=== PATIENT | male | born 1935 | race Caucasian/White ===

== ENCOUNTER → 2017-11-11 | Outpatient (CLI) | payer OTHER ==
[~2017-11-11] MED LIST: ACET325 PO; AMLO10 PO; ASPI325; ATOR40TA PO; Aspir 8181 MG; CYCL0.05OP; CYCL0.05OP BOTHEYES; DUTA.5 PO; FISH1000 PO; FURO20 PO; Fish Oil Conce1 EACH PO; Hydrocodone-Ap1 EA23 PO; IBUP600 PO; Isosorbide Mono60 MG PO; LEVFLO500 PO; LUTEIN20 MG PO; METO25ER PO; NITR.4SL SL; POTCHL10ER PO; Prilosec20 MG PO; RANO500T PO; SENN187 PO; SIMV40 PO; Synthroid112 MCG PO; TAMS.4ER PO; TICA90TA PO; TRIM100 PO; Toprol Xl25 MG PO; Vitamin D400 UNI1 PO; ZEAXANTHIN100 GM PO
== END | disposition home or self-care (01) ==
LOC: LAB EV 08:41 → LAB SHORT 08:41
DX: N30.01 Acute cystitis with hematuria (principal)
CPT/HCPCS: 87077; 87086; 87186

== ENCOUNTER 2017-12-28 11:07 | Emergency (ER) | payer OTHER, SELFPAY ==
[~2017-12-28] VITALS: Ht 180.3 cm; Wt 95.2 kg
[2017-12-28 11:54] LABS: BASOPHILS ABSOLUTE AUTO 0.04 K/mm3 (0.00-0.23); BASOPHILS PERCENT AUTO 1 % (0-2); EOSINOPHILS ABSOLUTE AUTO 0.19 K/mm3 (0.00-0.68); EOSINOPHILS PERCENT AUTO 3 % (0-6); Hematocrit 39.1 % (37.0-53.0); Hemoglobin 12.1 g/dL (13.5-17.5); IMMATURE GRAN ABSOLUTE AUTO 0.02 K/mm3 (0.00-0.10); IMMATURE GRAN PERCENT AUTO 0 % (0-1); LYMPHOCYTES ABSOLUTE AUTO 0.67 K/mm3 (0.84-5.20); LYMPHOCYTES PERCENT AUTO 11 % (21-46); MONOCYTES ABSOLUTE AUTO 0.48 K/mm3 (0.16-1.47); MONOCYTES PERCENT AUTO 8 % (4-13); Mean Corpuscular HGB 27.8 pg (26.0-34.0); Mean Corpuscular HGB Conc 30.9 g/dL (31.5-36.5); Mean Corpuscular Volume 90 fL (80-100); Mean Platelet Volume 10.1 fL (9.1-12.4); NEUTROPHILS ABSOLUTE AUTO 4.73 K/mm3 (1.96-9.15); NEUTROPHILS PERCENT AUTO 77 % (41-73); Platelet Count 158 K/mm3 (150-400); RDW Coefficient Variation 16.3 % (11.7-14.2); Red Blood Cell Count 4.35 M/mm3 (4.30-5.90); White Blood Cell Count 6.13 K/mm3 (4.00-11.30)
[2017-12-28 12:08] LABS: Alanine Aminotransfer (ALT/SGP 16 U/L (12-78); Albumin, Blood 3.2 g/dL (3.4-5.0); Albumin/Globulin Ratio 0.9 (0.8-1.8); Alk Phos 100 U/L (50-136); Anion Gap 7 mmol/L (6-16); Aspartate Aminotrans (AST/SGOT 13 U/L (12-37); Bilirubin, Total 0.6 mg/dL (0.1-1.0); Blood Urea Nitrogen 13 mg/dL (8-24); Bun/Creatinine Ratio 13.7 (12.0-20.0); CO2, Blood 26 mmol/L (21-32); Calcium, Blood 8.5 mg/dL (8.5-10.1); Chloride, Blood 110 mmol/L (98-108); Creatinine, Blood 0.95 mg/dL (0.60-1.20); Globulin, Blood 3.4 g/dL (2.2-4.0); Glomerular Filtration Rate >60 (60-); Glucose, Blood 76 mg/dL (70-99); Potassium, Blood 4.2 mmol/L (3.5-5.5); Sodium, Blood 143 mmol/L (136-145); Total Protein, Blood 6.6 g/dL (6.4-8.2)
[2017-12-28 12:23] LABS: Magnesium, Blood 2.1 mg/dL (1.6-2.4)
[2017-12-28 13:19] LABS: Troponin I <0.015 ng/mL (0.000-0.040)
[2017-12-28 13:33] LABS: Source, Urine Catheter
[2017-12-28 13:37] LABS: Appearance, Urine Clear (Clear); Bilirubin, Urine Neg (Neg); Blood, Urine Neg (Neg); Color, Urine Yellow (P-Yellow); Glucose Qualitative, Urine Neg (Neg); Ketones, Urine Neg (Neg); Leukocyte Esterase, Urine 1+ (Neg); Nitrite, Urine Neg (Neg); Protein, Urine Neg (Neg); Urobilinogen, Urine 2+ (Normal)
[2017-12-28 14:02] LABS: Bacteria Few /hpf; Red Blood Cells, Urine 0-2 /hpf (0-2); Squamous Epithelial Cells Few /hpf (Few)
== END 2017-12-28 13:45 | disposition home or self-care (01) ==
LOC: ER 11:07
PROVIDERS: Emergency Medicine
DX: R55 Syncope and collapse (principal); I25.2 Old myocardial infarction; I25.10 Atherosclerotic heart disease of native coronary artery without angina pectoris; E78.00 Pure hypercholesterolemia, unspecified; Z88.0 Allergy status to penicillin; Z88.8 Allergy status to other drugs, medicaments and biological substances; Z91.048 Other nonmedicinal substance allergy status; Z79.899 Other long term (current) drug therapy; Z79.82 Long term (current) use of aspirin
CPT/HCPCS: 71046; 80053; 81001; 82947; 83735; 84484; 85025; 87086; 93005; 93010; 99284

== ENCOUNTER → 2018-07-27 | Outpatient (CLI) | payer OTHER ==
[2018-07-27 13:19] LABS: BASOPHILS ABSOLUTE AUTO 0.04 K/mm3 (0.00-0.23); BASOPHILS PERCENT AUTO 1 % (0-2); EOSINOPHILS ABSOLUTE AUTO 0.05 K/mm3 (0.00-0.68); EOSINOPHILS PERCENT AUTO 1 % (0-6); Hematocrit 36.9 % (37.0-53.0); Hemoglobin 11.7 g/dL (13.5-17.5); IMMATURE GRAN ABSOLUTE AUTO 0.03 K/mm3 (0.00-0.10); IMMATURE GRAN PERCENT AUTO 0 % (0-1); LYMPHOCYTES ABSOLUTE AUTO 0.77 K/mm3 (0.84-5.20); LYMPHOCYTES PERCENT AUTO 9 % (21-46); MONOCYTES ABSOLUTE AUTO 0.72 K/mm3 (0.16-1.47); MONOCYTES PERCENT AUTO 9 % (4-13); Mean Corpuscular HGB 28.5 pg (26.0-34.0); Mean Corpuscular HGB Conc 31.7 g/dL (31.5-36.5); Mean Corpuscular Volume 90 fL (80-100); Mean Platelet Volume 10.2 fL (9.1-12.4); NEUTROPHILS ABSOLUTE AUTO 6.56 K/mm3 (1.96-9.15); NEUTROPHILS PERCENT AUTO 80 % (41-73); Platelet Count 153 K/mm3 (150-400); RDW Standard Deviation 52.8 fL (35.1-46.3); Red Blood Cell Count 4.11 M/mm3 (4.30-5.90); White Blood Cell Count 8.17 K/mm3 (4.00-11.30)
[2018-07-27 13:26] LABS: Anion Gap 8 mmol/L (6-16); Blood Urea Nitrogen 10 mg/dL (8-24); Bun/Creatinine Ratio 10.8 (12.0-20.0); CO2, Blood 25 mmol/L (21-32); Calcium, Blood 8.6 mg/dL (8.5-10.1); Chloride, Blood 101 mmol/L (98-108); Creatinine, Blood 0.93 mg/dL (0.60-1.20); Glomerular Filtration Rate >60 (60-); Glucose, Blood 115 mg/dL (70-99); Potassium, Blood 3.7 mmol/L (3.5-5.5); Sodium, Blood 134 mmol/L (136-145)
== END | disposition home or self-care (01) ==
LOC: LAB SHORT 13:16 → LAB EV 13:16
PROVIDERS: General Practice
DX: R33.9 Retention of urine, unspecified (principal)
CPT/HCPCS: 80048; 85025; 87077; 87086; 87186

== ENCOUNTER 2019-03-02 10:38 | Observation (INO) | payer OTHER, SELFPAY ==
[~2019-03-02] VITALS: Ht 180.3 cm; Wt 93.5 kg
[2019-03-02 11:06] LABS: BASOPHILS ABSOLUTE AUTO 0.04 K/mm3 (0.00-0.23); BASOPHILS PERCENT AUTO 1 % (0-2); EOSINOPHILS ABSOLUTE AUTO 0.16 K/mm3 (0.00-0.68); EOSINOPHILS PERCENT AUTO 4 % (0-6); Hematocrit 37.5 % (37.0-53.0); Hemoglobin 11.4 g/dL (13.5-17.5); IMMATURE GRAN ABSOLUTE AUTO 0.01 K/mm3 (0.00-0.10); IMMATURE GRAN PERCENT AUTO 0 % (0-1); LYMPHOCYTES ABSOLUTE AUTO 1.04 K/mm3 (0.84-5.20); LYMPHOCYTES PERCENT AUTO 24 % (21-46); MONOCYTES ABSOLUTE AUTO 0.36 K/mm3 (0.16-1.47); MONOCYTES PERCENT AUTO 8 % (4-13); Mean Corpuscular HGB 27.4 pg (26.0-34.0); Mean Corpuscular HGB Conc 30.4 g/dL (31.5-36.5); Mean Corpuscular Volume 90 fL (80-100); Mean Platelet Volume 9.9 fL (9.1-12.4); NEUTROPHILS ABSOLUTE AUTO 2.75 K/mm3 (1.96-9.15); NEUTROPHILS PERCENT AUTO 63 % (41-73); Platelet Count 162 K/mm3 (150-400); RDW Coefficient Variation 16.1 % (11.7-14.2); RDW Standard Deviation 52.9 fL (35.1-46.3); Red Blood Cell Count 4.16 M/mm3 (4.30-5.90); White Blood Cell Count 4.36 K/mm3 (4.00-11.30)
[2019-03-02 11:18] LABS: Alanine Aminotransfer (ALT/SGP 14 U/L (12-78); Albumin, Blood 3.3 g/dL (3.4-5.0); Alk Phos 98 U/L (50-136); Anion Gap 5 mmol/L (6-16); Aspartate Aminotrans (AST/SGOT 12 U/L (12-37); Bilirubin, Total 1.1 mg/dL (0.1-1.0); Blood Urea Nitrogen 15 mg/dL (8-24); Bun/Creatinine Ratio 16.2 (12.0-20.0); CO2, Blood 25 mmol/L (21-32); Calcium, Blood 8.4 mg/dL (8.5-10.1); Chloride, Blood 109 mmol/L (98-108); Creatinine, Blood 0.93 mg/dL (0.60-1.20); Globulin, Blood 3.3 g/dL (2.2-4.0); Glomerular Filtration Rate >60 (60-); Glucose, Blood 116 mg/dL (70-99); Sodium, Blood 139 mmol/L (136-145); Total Protein, Blood 6.6 g/dL (6.4-8.2)
[2019-03-02] MEDS ORDERED: LEVSOD125 PO (15:57)
[2019-03-02] MEDS ORDERED: GABA300 PO (15:58)
[2019-03-02] MEDS ORDERED: ATORVASTATIN CA40 MG PO (15:59)
[2019-03-02] MEDS ORDERED: OMEP20ER PO (15:59)
[2019-03-02] MEDS ORDERED: CLOP75 PO (16:00)
[2019-03-02] MEDS ORDERED: METOPROLOL SUCC25 MG PO (16:00)
[2019-03-02] MEDS ORDERED: RESTASIS MULTI5.5 ML BOTHEYES (16:01)
[2019-03-02] MEDS ORDERED: TRIM100 PO (16:02)
--- NOTE | 2019-03-02 19:26 | NUR ---
1846 PT ADMITTED TO MEDICAL FLOOR VIA [facility], SLIDE TRANSFERED TO BED WITH 3 STAFF. AND GRANDDAUGHTER AT BEDSIDE.
[2019-03-02] MEDS ORDERED: RANO500T PO (19:49)
[2019-03-03 01:05] LABS: BASOPHILS ABSOLUTE AUTO 0.04 K/mm3 (0.00-0.23); BASOPHILS PERCENT AUTO 1 % (0-2); EOSINOPHILS ABSOLUTE AUTO 0.19 K/mm3 (0.00-0.68); EOSINOPHILS PERCENT AUTO 4 % (0-6); Hemoglobin 11.4 g/dL (13.5-17.5); IMMATURE GRAN ABSOLUTE AUTO 0.01 K/mm3 (0.00-0.10); IMMATURE GRAN PERCENT AUTO 0 % (0-1); LYMPHOCYTES ABSOLUTE AUTO 1.09 K/mm3 (0.84-5.20); LYMPHOCYTES PERCENT AUTO 22 % (21-46); MONOCYTES ABSOLUTE AUTO 0.46 K/mm3 (0.16-1.47); MONOCYTES PERCENT AUTO 9 % (4-13); Mean Corpuscular HGB 27.5 pg (26.0-34.0); Mean Corpuscular HGB Conc 30.8 g/dL (31.5-36.5); Mean Corpuscular Volume 89 fL (80-100); Mean Platelet Volume 9.9 fL (9.1-12.4); NEUTROPHILS ABSOLUTE AUTO 3.13 K/mm3 (1.96-9.15); NEUTROPHILS PERCENT AUTO 64 % (41-73); Platelet Count 156 K/mm3 (150-400); RDW Coefficient Variation 15.9 % (11.7-14.2); RDW Standard Deviation 52.9 fL (35.1-46.3); Red Blood Cell Count 4.15 M/mm3 (4.30-5.90); White Blood Cell Count 4.92 K/mm3 (4.00-11.30)
[2019-03-03 01:24] LABS: Alanine Aminotransfer (ALT/SGP 14 U/L (12-78); Albumin, Blood 3.4 g/dL (3.4-5.0); Alk Phos 97 U/L (50-136); Anion Gap 5 mmol/L (6-16); Aspartate Aminotrans (AST/SGOT 12 U/L (12-37); Bilirubin, Total 0.8 mg/dL (0.1-1.0); Blood Urea Nitrogen 15 mg/dL (8-24); Bun/Creatinine Ratio 14.6 (12.0-20.0); CO2, Blood 27 mmol/L (21-32); Calcium, Blood 8.6 mg/dL (8.5-10.1); Chloride, Blood 107 mmol/L (98-108); Creatinine, Blood 1.03 mg/dL (0.60-1.20); Globulin, Blood 3.3 g/dL (2.2-4.0); Glomerular Filtration Rate >60 (60-); Glucose, Blood 105 mg/dL (70-99); Potassium, Blood 4.1 mmol/L (3.5-5.5); Sodium, Blood 139 mmol/L (136-145); Total Protein, Blood 6.7 g/dL (6.4-8.2)
--- NOTE | 2019-03-03 04:14 | NUR ---
SHIFT SUMMARY- PT. ARRIVED FROM ED @1900 VIA STRETCHER. ASSISTED WITH TRANSFER OVER TO BED. A&O, DX'S OF SYNCOPE AND FALL. PT. WITH HX OF SEVERAL FALLS PER . PT. STATES USES CANE AT HOME. PT/OT CONSULTED. PERFORMS SELF CATHS FOR URINARY RETENTION. USING HOME BIPAP MACHINE AT BEDTIME FOR SLEEP APNEA WITH CONTINOUS PULSE OXIMETRY. VSS. DENIES ANY C/O PAIN OR DISCOMFORT AT THIS TIME. CALL LIGHT WITHIN REACH AND SIDE RAILS UP X2. WILL CONT TO MONITOR.
--- NOTE | 2019-03-03 10:24 | NUR ---
SCANNED PT LOOP RECORDER PER DR GILLILAND ORDER, NO EVENTS SEEN FOR YESTERDAYS SYNCOPAL EPISODE, PT ON BETA ZAHRA AT HOME, BUT HELD IN HOSPITAL R/T LOW HR IN 50'S. NOTIFIED PCU TO PRINT RHYTHM STRIPS FOR HR < 50 BPM.
--- NOTE | 2019-03-03 10:58 | NUR ---
PT PARTICIPATED WITH PT/OT AND TOLERATED WELL. [facility]ART [facility]ENTER INTERROGATED LOOP RECORDER, FOUND THAT LOW SETTING TO 30BPM, PT HAS BEEN BRADYCARDIC, ER REPORTED YESTERDAY THAT WHILE ON MONITOR HR LOW 47 BPM. CLOUD CONSULTANT REPORTED THAT PT'S HR WAS 50 BPM DURING THE NIGHT. METOPROLOL HELD THIS AM, HR 55 BPM.
[2019-03-03] MEDS ORDERED: GABA100 PO (14:30)
[2019-03-03] MEDS ORDERED: ROXICODONE5 MG PO (14:31)
--- NOTE | 2019-03-03 17:29 | NUR ---
1600 PT DISCHARGED HOME VIA PERSONAL VEHICLE ACCOMPANIED AND DRIVEN BY . TRANSPORTED TO FACILITY ENTRANCE VIA W/C BY INDOOR LANDSCAPE ARCHITECT. IV REMOVED. D/C INSTRUCTIONS REVIEWED WITH PT AND COPY PROVIDED. PT DENIED FEELING DIZZY WITH POSITION CHANGES AND AMBULATION. PT STEADY ON FEET WITH FWW. PT PARTICIPATED WITH PT/OT AND TOLERATED WELL WITH WALKER TRAINING.
== END 2019-03-03 16:00 | disposition home health service (06) ==
LOC: ER 10:38 → MEDS 10:39
PROVIDERS: Internal Medicine; ADMIT Family Medicine
DX: R29.6 Repeated falls (principal); R27.0 Ataxia, unspecified; S20.229A Contusion of unspecified back wall of thorax, initial encounter; S40.011A Contusion of right shoulder, initial encounter; R62.7 Adult failure to thrive; R55 Syncope and collapse; M19.90 Unspecified osteoarthritis, unspecified site; G60.9 Hereditary and idiopathic neuropathy, unspecified; M51.36 Other intervertebral disc degeneration, lumbar region; I25.10 Atherosclerotic heart disease of native coronary artery without angina pectoris; E78.5 Hyperlipidemia, unspecified; M81.0 Age-related osteoporosis without current pathological fracture; G47.33 Obstructive sleep apnea (adult) (pediatric); E03.9 Hypothyroidism, unspecified; R33.8 Other retention of urine; Z79.82 Long term (current) use of aspirin; Z79.02 Long term (current) use of antithrombotics/antiplatelets; Z79.899 Other long term (current) drug therapy; Z88.0 Allergy status to penicillin; Z95.5 Presence of coronary angioplasty implant and graft; Z87.891 Personal history of nicotine dependence
CPT/HCPCS: 36415; 70450; 70496; 70498; 72080; 73030; 80053; 84484; 85025; 93005; 93010; 93291; 94762; 96372; 97116; 97161; 97165; 97530; 97535; 99285-25; G0378; J1650; Q9967

== ENCOUNTER → 2019-06-30 | Outpatient (CLI) | payer OTHER ==
[~2019-06-30] MED LIST changes: +ATORVASTATIN CA40 MG PO; +CLOP75 PO; +GABA100 PO; +GABA300 PO; +LEVSOD125 PO; +METOPROLOL SUCC25 MG PO; +OMEP20ER PO; +RESTASIS MULTI5.5 ML BOTHEYES; +ROXICODONE5 MG PO
== END | disposition home or self-care (01) ==
LOC: LAB SHORT 11:10 → LAB EV 11:10
DX: N39.0 Urinary tract infection, site not specified (principal)
CPT/HCPCS: 87077; 87086; 87186

== ENCOUNTER 2019-09-16 17:22 | Emergency (ER) | payer OTHER ==
[~2019-09-16] VITALS: Ht 177.8 cm; Wt 92.5 kg
[2019-09-16 18:08] LABS: BASOPHILS ABSOLUTE AUTO 0.03 K/mm3 (0.00-0.23); BASOPHILS PERCENT AUTO 0 % (0-2); EOSINOPHILS ABSOLUTE AUTO 0.05 K/mm3 (0.00-0.68); EOSINOPHILS PERCENT AUTO 1 % (0-6); Hematocrit 41.5 % (37.0-53.0); Hemoglobin 12.6 g/dL (13.5-17.5); IMMATURE GRAN ABSOLUTE AUTO 0.02 K/mm3 (0.00-0.10); IMMATURE GRAN PERCENT AUTO 0 % (0-1); LYMPHOCYTES ABSOLUTE AUTO 0.55 K/mm3 (0.84-5.20); LYMPHOCYTES PERCENT AUTO 5 % (21-46); MONOCYTES ABSOLUTE AUTO 0.52 K/mm3 (0.16-1.47); MONOCYTES PERCENT AUTO 5 % (4-13); Mean Corpuscular HGB 27.3 pg (26.0-34.0); Mean Corpuscular HGB Conc 30.4 g/dL (31.5-36.5); Mean Corpuscular Volume 90 fL (80-100); Mean Platelet Volume 10.2 fL (9.1-12.4); NEUTROPHILS ABSOLUTE AUTO 9.26 K/mm3 (1.96-9.15); NEUTROPHILS PERCENT AUTO 89 % (41-73); Platelet Count 179 K/mm3 (150-400); RDW Coefficient Variation 16.7 % (11.7-14.2); RDW Standard Deviation 55.3 fL (35.1-46.3); Red Blood Cell Count 4.62 M/mm3 (4.30-5.90); White Blood Cell Count 10.43 K/mm3 (4.00-11.30)
[2019-09-16 18:26] LABS: Anion Gap 3 mmol/L (6-16); Blood Urea Nitrogen 12 mg/dL (8-24); CO2, Blood 28 mmol/L (21-32); Chloride, Blood 104 mmol/L (98-108); Creatinine, Blood 0.86 mg/dL (0.60-1.20); Glomerular Filtration Rate >60 (60-); Glucose, Blood 118 mg/dL (70-99); Potassium, Blood 4.5 mmol/L (3.5-5.5); Sodium, Blood 135 mmol/L (136-145)
== END 2019-09-16 20:06 | disposition home or self-care (01) ==
LOC: ER 17:22
PROVIDERS: Physician Assistant
DX: S13.9XXA Sprain of joints and ligaments of unspecified parts of neck, initial encounter (principal); S20.219A Contusion of unspecified front wall of thorax, initial encounter; W18.30XA Fall on same level, unspecified, initial encounter; Z88.0 Allergy status to penicillin; Z88.1 Allergy status to other antibiotic agents; Z91.048 Other nonmedicinal substance allergy status; Z79.899 Other long term (current) drug therapy; I25.2 Old myocardial infarction; I25.10 Atherosclerotic heart disease of native coronary artery without angina pectoris; Z87.891 Personal history of nicotine dependence
CPT/HCPCS: 36415; 71250; 72125; 80048; 85025; 99284-25

== ENCOUNTER → 2020-05-26 | Outpatient (CLI) | payer OTHER ==
[~2020-05-26] MED LIST changes: +CALCIUM 600 +1 EAC6 PO; +ELIGARD45 MG SC; +EUTHYROX125 MCG PO; +ISOSORBIDE MONO30 MG PO; -LEVSOD125 PO; +RANEXA1000 M1 PO
[2020-05-26 10:37] LABS: Appearance, Urine Cloudy (Clear); Bilirubin, Urine Neg (Neg); Blood, Urine 2+ (Neg); Color, Urine Yellow (P-Yellow); Glucose Qualitative, Urine Neg (Neg); Ketones, Urine Neg (Neg); Leukocyte Esterase, Urine 3+ (Neg); Nitrite, Urine Pos (Neg); Protein, Urine 1+ (Neg); Specific Gravity, Urine 1.015 (1.003-1.022); Urobilinogen, Urine NORM (Normal)
[2020-05-26 11:14] LABS: White Blood Cells, Urine TNTC /hpf (0-5)
[2020-05-26 11:15] LABS: Bacteria Many /hpf; Squamous Epithelial Cells Rare /hpf (Few)
== END | disposition home or self-care (01) ==
LOC: LAB SHORT 09:54 → LAB 09:54
PROVIDERS: Radiology Therapeutic Radiology
DX: Z51.0 Encounter for antineoplastic radiation therapy (principal); C61 Malignant neoplasm of prostate
CPT/HCPCS: 81001; 87077; 87086; 87186

== ENCOUNTER → 2020-06-01 | Outpatient (CLI) | payer OTHER ==
[2020-06-01 10:10] LABS: Appearance, Urine Hazy (Clear); Bilirubin, Urine Neg (Neg); Blood, Urine 1+ (Neg); Color, Urine Yellow (P-Yellow); Glucose Qualitative, Urine Neg (Neg); Ketones, Urine Neg (Neg); Leukocyte Esterase, Urine 3+ (Neg); Nitrite, Urine Pos (Neg); Protein, Urine 2+ (Neg); Urobilinogen, Urine NORM (Normal)
[2020-06-01 10:19] LABS: Bacteria Many /hpf; Red Blood Cells, Urine 0-2 /hpf (0-2); Squamous Epithelial Cells Rare /hpf (Few); White Blood Cells, Urine TNTC /hpf (0-5)
== END | disposition home or self-care (01) ==
LOC: LAB 09:56 → LAB SHORT 09:56
PROVIDERS: Radiology Therapeutic Radiology
DX: R30.0 Dysuria (principal)
CPT/HCPCS: 81001; 87077; 87086; 87186

== ENCOUNTER 2020-06-16 13:18 | Inpatient (IN) | payer OTHER ==
[~2020-06-16] VITALS: Ht 185.4 cm; Wt 92.5 kg
[~2020-06-16 13:18] MED LIST changes: -ATOR40TA PO; -CALCIUM 600 +1 EAC6 PO; -CLOP75 PO; -CYCL0.05OP BOTHEYES; -ELIGARD45 MG SC; -EUTHYROX125 MCG PO; -ISOSORBIDE MONO30 MG PO; -METO25ER PO; -OMEP20ER PO; -RANEXA1000 M1 PO
[2020-06-16 14:08] LABS: BASOPHILS ABSOLUTE AUTO 0.03 K/mm3 (0.00-0.23); BASOPHILS PERCENT AUTO 1 % (0-2); EOSINOPHILS PERCENT AUTO 7 % (0-6); Hematocrit 35.4 % (37.0-53.0); Hemoglobin 10.6 g/dL (13.5-17.5); IMMATURE GRAN ABSOLUTE AUTO 0.02 K/mm3 (0.00-0.10); IMMATURE GRAN PERCENT AUTO 0 % (0-1); LYMPHOCYTES ABSOLUTE AUTO 0.58 K/mm3 (0.84-5.20); LYMPHOCYTES PERCENT AUTO 13 % (21-46); MONOCYTES ABSOLUTE AUTO 0.43 K/mm3 (0.16-1.47); MONOCYTES PERCENT AUTO 9 % (4-13); Mean Corpuscular HGB 28.6 pg (26.0-34.0); Mean Corpuscular HGB Conc 29.9 g/dL (31.5-36.5); Mean Corpuscular Volume 96 fL (80-100); Mean Platelet Volume 9.9 fL (9.1-12.4); NEUTROPHILS ABSOLUTE AUTO 3.27 K/mm3 (1.96-9.15); NEUTROPHILS PERCENT AUTO 71 % (41-73); Platelet Count 138 K/mm3 (150-400); RDW Coefficient Variation 16.3 % (11.7-14.2); RDW Standard Deviation 58.3 fL (35.1-46.3); White Blood Cell Count 4.63 K/mm3 (4.00-11.30)
[2020-06-16 14:30] LABS: Alanine Aminotransfer (ALT/SGP 36 U/L (12-78); Albumin, Blood 3.3 g/dL (3.4-5.0); Albumin/Globulin Ratio 1.1 (0.8-1.8); Alk Phos 62 U/L (50-136); Anion Gap 5 mmol/L (6-16); Aspartate Aminotrans (AST/SGOT 34 U/L (12-37); Bilirubin, Total 0.8 mg/dL (0.1-1.0); Blood Urea Nitrogen 14 mg/dL (8-24); Bun/Creatinine Ratio 16.2 (12.0-20.0); CO2, Blood 26 mmol/L (21-32); Calcium, Blood 8.8 mg/dL (8.5-10.1); Chloride, Blood 108 mmol/L (98-108); Creatinine, Blood 0.86 mg/dL (0.60-1.20); Globulin, Blood 3.1 g/dL (2.2-4.0); Glomerular Filtration Rate >60 (60-); Glucose, Blood 92 mg/dL (70-99); Potassium, Blood 4.4 mmol/L (3.5-5.5); Sodium, Blood 139 mmol/L (136-145); Total Protein, Blood 6.4 g/dL (6.4-8.2)
[2020-06-16] MEDS ORDERED: TRIM100 PO (14:33)
[2020-06-16] MEDS ORDERED: EUTHYROX125 MCG PO (14:33)
[2020-06-16] MEDS ORDERED: OMEP20ER PO (14:34)
[2020-06-16] MEDS ORDERED: RANEXA1000 M1 PO (14:34)
[2020-06-16] MEDS ORDERED: ISOSORBIDE MONO30 MG PO (14:35)
[2020-06-16] MEDS ORDERED: ATOR40TA PO (14:36)
[2020-06-16] MEDS ORDERED: CLOP75 PO (14:36)
[2020-06-16] MEDS ORDERED: METO25ER PO (15:04)
[2020-06-16] MEDS ORDERED: CYCL0.05OP BOTHEYES (15:05)
[2020-06-16] MEDS ORDERED: CALCIUM 600 +1 EAC6 PO (15:21)
[2020-06-16] MEDS ORDERED: ELIGARD45 MG SC (15:22)
[2020-06-16 16:32] LABS: Source, Urine Catheter
[2020-06-16 16:47] LABS: Appearance, Urine Hazy (Clear); Bilirubin, Urine Neg (Neg); Blood, Urine 2+ (Neg); Color, Urine Yellow (P-Yellow); Glucose Qualitative, Urine Neg (Neg); Ketones, Urine Neg (Neg); Leukocyte Esterase, Urine 2+ (Neg); Nitrite, Urine Neg (Neg); Protein, Urine 2+ (Neg); Specific Gravity, Urine 1.015 (1.003-1.022); Urobilinogen, Urine NORM (Normal)
[2020-06-16 17:10] LABS: Bacteria Many /hpf; Squamous Epithelial Cells Rare /hpf (Few)
--- NOTE | 2020-06-16 17:43 | NUR ---
DR BAILON HERE TO SEE PATIENT
[2020-06-16 23:51] LABS: Influenza A, PCR Negative (NEGATIVE); Influenza B, PCR Negative (NEGATIVE); Resp Syncytial Virus, PCR Negative (NEGATIVE); SARS-Cov-2 (COVID-19) PCR, MMC Negative (NEGATIVE)
[2020-06-17 05:03] LABS: BASOPHILS ABSOLUTE AUTO 0.03 K/mm3 (0.00-0.23); BASOPHILS PERCENT AUTO 1 % (0-2); EOSINOPHILS ABSOLUTE AUTO 0.23 K/mm3 (0.00-0.68); EOSINOPHILS PERCENT AUTO 6 % (0-6); Hematocrit 31.8 % (37.0-53.0); Hemoglobin 9.7 g/dL (13.5-17.5); IMMATURE GRAN ABSOLUTE AUTO 0.02 K/mm3 (0.00-0.10); IMMATURE GRAN PERCENT AUTO 1 % (0-1); LYMPHOCYTES ABSOLUTE AUTO 0.58 K/mm3 (0.84-5.20); LYMPHOCYTES PERCENT AUTO 15 % (21-46); MONOCYTES ABSOLUTE AUTO 0.41 K/mm3 (0.16-1.47); MONOCYTES PERCENT AUTO 10 % (4-13); Mean Corpuscular HGB 28.7 pg (26.0-34.0); Mean Corpuscular HGB Conc 30.5 g/dL (31.5-36.5); Mean Corpuscular Volume 94 fL (80-100); Mean Platelet Volume 10.1 fL (9.1-12.4); NEUTROPHILS ABSOLUTE AUTO 2.73 K/mm3 (1.96-9.15); NEUTROPHILS PERCENT AUTO 68 % (41-73); Platelet Count 137 K/mm3 (150-400); RDW Coefficient Variation 16.5 % (11.7-14.2); RDW Standard Deviation 57.3 fL (35.1-46.3); Red Blood Cell Count 3.38 M/mm3 (4.30-5.90)
--- NOTE | 2020-06-17 05:19 | NUR ---
SHIFT SUMMARY LYING IN SEMI FOWLERS WITH EYES CLOSED. AAO X4, RECIO, FOLLOWS ALL COMMANDS. HAS BEEN VERY PLEASANT AND COOPERATIVE. NO SIGNIFICANT CHANGES SINCE START OF SHIFT. PAIN WELL MANAGED WITH DILAUDID 1MG X1 DOSE, AND FENT 12.5MCG IVP X 1 DOSE. GOOD DISTAL PULSES TO BLE, EXTREMITIES MORE WARM THAN START OF SHIFT. DENIES FURTHER NEEDS OR WANTS AT THIS TIME. SAFETY MEASURES IN PLACE. WILL GIVE HAND OFF TO ONCOMING SHIFT USING SBAR.
[2020-06-17 05:39] LABS: Anion Gap 4 mmol/L (6-16); Blood Urea Nitrogen 12 mg/dL (8-24); Bun/Creatinine Ratio 15.4 (12.0-20.0); CO2, Blood 27 mmol/L (21-32); Calcium, Blood 8.3 mg/dL (8.5-10.1); Chloride, Blood 106 mmol/L (98-108); Creatinine, Blood 0.78 mg/dL (0.60-1.20); Glomerular Filtration Rate >60 (60-); Glucose, Blood 109 mg/dL (70-99); Sodium, Blood 137 mmol/L (136-145)
--- NOTE | 2020-06-17 13:05 | NUR ---
PATIENT TO DAY SURGERY AT THIS TIME, ACCOMPANYING. MEDICATED FOR PAIN THIS AM, PATIENT HAS STATED PAIN CONTROLLED.
--- NOTE | 2020-06-17 13:37 | NUR ---
PT TO DAY SURGERY VIA BED. PT DENIES PAIN AT THIS TIME. URINARY CATHETER IN PLACE. RECENTLY EMPTIED BY PRIMARY RN. AT [facility]. VSS, PT [facility].
--- NOTE | 2020-06-17 17:35 | NUR ---
PATIENT RETURNED TO ROOM FROM PACU AT THIS TIME, AWAKENS TO VERBAL STIMULI. SHAKES HIS HEAD 'NO' WHEN ASKED IF HAVING PAIN. VSS. BIOX 89-90% ON RA, O2 AT 1L ADMIN. LS DECREASED T/O, UNCHANGED FROM PRE OP. HRR. FC PATIENT, DRAINING YELLOW URINE. L HIP W/AQUACEL DRESSING WITH APPROX 0.5 CM RED DRAINAGE VISIBLE. PPP. PAS IN PLACE. IVF INFUSING PER ORDER, SITE CLEAR. BED ALARM ON. CALL LIGHT IN REACH. CONT TO MONITOR.
--- NOTE | 2020-06-19 07:41 | NUR ---
SHIFT SUMMARY POD#2. AAOX4. DISCOMFORT CONTROLLED WITH 1 NORCO X2 THIS SHIFT. NO NAUSEA/EMESIS. DRESSING TO LEFT HIP, SCANT SS DRAINAGE, NO INCREASE IN DRAINAGE THIS SHIFT. PT MOVES SELF WELL IN BED, CONTINUE TO ENCOURAGE REPOSITIONING. PPP, DENIES N/T + MOVES TOES WELL BLE. BARAKAT SECURE/DRAINING YELLOW. NO ACUTE CHANGES OVER NIGHT. PT CURRENTLY RESTING IN BED, REPORT TO DAY SHIFT RN.
--- NOTE | 2020-06-19 18:16 | NUR ---
SHIFT SUMMARY PT HAD INCREASED WORK OF BREATHING/SOB THIS AM THAT HAS IMPROVED T/O SHIFT-IMAGING TO T/O DVT/PE ALL NEGATIVE. AQUACEL DRESSING TO L HIP C/D/I. PAIN MANAGED PER EMAR. PT WORKED WITH PT. BARAKAT PATENT, DRAINING GIULIA URINE.
--- NOTE | 2020-06-20 06:26 | NUR ---
SHIFT SUMMARY POD#3. AAOX4. DISCOMFORT CONTROLLED WITH 1 NORCO X2 THIS SHIFT. NO NAUSEA/EMESIS. DRESSING TO LEFT HIP C/D/I. MOVES TOES WELL, PPP, N/T AT BASELINE BLE. PT REPOSITIONS SELF WELL IN BED, CONTINUE TO ENCOURAGE. GOOD PO INTAKE + BARAKAT OUTPUT. RESTED WELL THIS SHIFT. CALL LIGHT WITHIN REACH.
--- NOTE | 2020-06-20 19:36 | NUR ---
SHIFT SUMMARY PT HAS DONE WELL TODAY. WAS ABLE TO STAND WITH THERAPY. ALERT AND PLEASANT. PAIN FAIRLY CONTROLLED; DENYING ANY NORCO. WAS MUCH MORE AWAKE THIS AFTER NOON. WORKING TOWARDS DC TO SNF.
[2020-06-21 04:48] LABS: BASOPHILS ABSOLUTE AUTO 0.03 K/mm3 (0.00-0.23); BASOPHILS PERCENT AUTO 1 % (0-2); EOSINOPHILS ABSOLUTE AUTO 0.37 K/mm3 (0.00-0.68); EOSINOPHILS PERCENT AUTO 7 % (0-6); Hematocrit 31.4 % (37.0-53.0); Hemoglobin 9.6 g/dL (13.5-17.5); IMMATURE GRAN ABSOLUTE AUTO 0.02 K/mm3 (0.00-0.10); IMMATURE GRAN PERCENT AUTO 0 % (0-1); LYMPHOCYTES ABSOLUTE AUTO 0.66 K/mm3 (0.84-5.20); LYMPHOCYTES PERCENT AUTO 13 % (21-46); MONOCYTES ABSOLUTE AUTO 0.48 K/mm3 (0.16-1.47); MONOCYTES PERCENT AUTO 9 % (4-13); Mean Corpuscular HGB 28.8 pg (26.0-34.0); Mean Corpuscular HGB Conc 30.6 g/dL (31.5-36.5); Mean Corpuscular Volume 94 fL (80-100); Mean Platelet Volume 10.5 fL (9.1-12.4); NEUTROPHILS ABSOLUTE AUTO 3.59 K/mm3 (1.96-9.15); NEUTROPHILS PERCENT AUTO 70 % (41-73); Platelet Count 165 K/mm3 (150-400); RDW Standard Deviation 56.2 fL (35.1-46.3); Red Blood Cell Count 3.33 M/mm3 (4.30-5.90); White Blood Cell Count 5.15 K/mm3 (4.00-11.30)
[2020-06-21 05:04] LABS: Anion Gap 4 mmol/L (6-16); Blood Urea Nitrogen 13 mg/dL (8-24); Bun/Creatinine Ratio 17.5 (12.0-20.0); CO2, Blood 32 mmol/L (21-32); Calcium, Blood 9.1 mg/dL (8.5-10.1); Chloride, Blood 103 mmol/L (98-108); Creatinine, Blood 0.74 mg/dL (0.60-1.20); Glomerular Filtration Rate >60 (60-); Glucose, Blood 115 mg/dL (70-99); Potassium, Blood 4.4 mmol/L (3.5-5.5); Sodium, Blood 139 mmol/L (136-145)
--- NOTE | 2020-06-21 06:30 | NUR ---
SHIFT SUMMARY: PT POD#3 FOR L HIP PINNING. A&O X4. VSS. AQUACEL DRESSING C/D/I WITH SMALL AMOUNT OF DRY BLOODY DRG NOTED. PAIN BEING MANAGED WITH TYLENOL PER EMAR. BARAKAT PATENT AND DRAINING. 900CC URINE EMPTIED. PT HAD A SMALL, UNFORMED BM THIS MORNING AFTER ADMINISTRATION OF MIRALAX LAST NIGHT. PLAN FOR FURTHER PT/OT AND EVENTUALLY SNF PLACEMENT.
--- NOTE | 2020-06-21 08:07 | NUR ---
AWAKE, A&OX3, REPOSITIONED IN BED, DENIES ANY PAIN OR ANY DISCOMFORT AT THIS TIME, CONT. TO MONITOR FOR ANY CHANGES, ASSIST PRN.
--- NOTE | 2020-06-21 15:25 | NUR ---
Pt. is sitting up in bed and his nurse in the roomattending to his needs prayed for pt.
[2020-06-21 16:07] LABS: Influenza A, PCR Negative (NEGATIVE); Influenza B, PCR Negative (NEGATIVE); Resp Syncytial Virus, PCR Negative (NEGATIVE); SARS-Cov-2 (COVID-19) PCR, MMC Negative (NEGATIVE)
--- NOTE | 2020-06-21 17:48 | NUR ---
DC'D TO [facility], PT'S NOTIFIED, IV DC'D, CATH INTACT, REPORT GIVEN TO CLAUDIA PABLO.
== END 2020-06-21 17:35 | DRG 481 ==
LOC: ER 13:18 → SURS 16:12
PROVIDERS: Emergency Medicine; Family Medicine; Orthopaedic Surgery; ADMIT Internal Medicine
PROC: 0QS934Z Reposition Left Femoral Shaft with Internal Fixation Device, Percutaneous Approach (ICD-10-PCS; principal; 2020-06-17 12:30)
DX: S72.002A Fracture of unspecified part of neck of left femur, initial encounter for closed fracture (principal); N39.0 Urinary tract infection, site not specified; E03.9 Hypothyroidism, unspecified; G60.9 Hereditary and idiopathic neuropathy, unspecified; I10 Essential (primary) hypertension; I25.10 Atherosclerotic heart disease of native coronary artery without angina pectoris; I25.2 Old myocardial infarction; K21.9 Gastro-esophageal reflux disease without esophagitis; Z86.73 Personal history of transient ischemic attack (TIA), and cerebral infarction without residual deficits; Z87.891 Personal history of nicotine dependence; Z86.711 Personal history of pulmonary embolism; D64.9 Anemia, unspecified; C61 Malignant neoplasm of prostate; W19.XXXA Unspecified fall, initial encounter; G47.33 Obstructive sleep apnea (adult) (pediatric); Z95.5 Presence of coronary angioplasty implant and graft; M81.0 Age-related osteoporosis without current pathological fracture; B96.20 Unspecified Escherichia coli [E. coli] as the cause of diseases classified elsewhere
CPT/HCPCS: 0241U; 36415; 51702; 71045; 71260; 73502; 80048; 80053; 81001; 84484; 85025; 87077; 87086; 87186; 93005; 93010; 93970; 94760; 96374-59; 97110; 97162; 97530; 99285-25; A9270; A9270-GY; C1713; C1769; J0690; J1100; J1170; J1650; J2405; J2704; J3010; J7042; Q9967

== ENCOUNTER 2020-07-16 10:49 | Emergency (ER) | payer OTHER ==
[~2020-07-16] VITALS: Ht 182.9 cm; Wt 83.9 kg
[~2020-07-16 10:49] MED LIST changes: +ATOR40TA PO; +CALCIUM 600 +1 EAC6 PO; +CLOP75 PO; +CYCL0.05OP BOTHEYES; +ELIGARD45 MG SC; +EUTHYROX125 MCG PO; +ISOSORBIDE MONO30 MG PO; +METO25ER PO; +OMEP20ER PO; +RANEXA1000 M1 PO
[2020-07-16 11:35] LABS: BASOPHILS ABSOLUTE AUTO 0.02 K/mm3 (0.00-0.23); BASOPHILS PERCENT AUTO 0 % (0-2); EOSINOPHILS ABSOLUTE AUTO 0.14 K/mm3 (0.00-0.68); EOSINOPHILS PERCENT AUTO 2 % (0-6); Hematocrit 36.2 % (37.0-53.0); IMMATURE GRAN ABSOLUTE AUTO 0.03 K/mm3 (0.00-0.10); IMMATURE GRAN PERCENT AUTO 0 % (0-1); LYMPHOCYTES ABSOLUTE AUTO 0.62 K/mm3 (0.84-5.20); LYMPHOCYTES PERCENT AUTO 9 % (21-46); MONOCYTES ABSOLUTE AUTO 0.58 K/mm3 (0.16-1.47); MONOCYTES PERCENT AUTO 8 % (4-13); Mean Corpuscular HGB 28.9 pg (26.0-34.0); Mean Corpuscular HGB Conc 30.4 g/dL (31.5-36.5); Mean Corpuscular Volume 95 fL (80-100); Mean Platelet Volume 10.5 fL (9.1-12.4); NEUTROPHILS ABSOLUTE AUTO 5.69 K/mm3 (1.96-9.15); NEUTROPHILS PERCENT AUTO 80 % (41-73); Platelet Count 193 K/mm3 (150-400); RDW Coefficient Variation 16.4 % (11.7-14.2); RDW Standard Deviation 57.9 fL (35.1-46.3); White Blood Cell Count 7.08 K/mm3 (4.00-11.30)
[2020-07-16 11:45] LABS: Source, Urine Catheter
[2020-07-16 11:50] LABS: Alanine Aminotransfer (ALT/SGP 21 U/L (12-78); Albumin, Blood 3.4 g/dL (3.4-5.0); Alk Phos 89 U/L (50-136); Anion Gap 5 mmol/L (6-16); Aspartate Aminotrans (AST/SGOT 22 U/L (12-37); Bilirubin, Total 0.7 mg/dL (0.1-1.0); Blood Urea Nitrogen 18 mg/dL (8-24); Bun/Creatinine Ratio 19.5 (12.0-20.0); CO2, Blood 28 mmol/L (21-32); Calcium, Blood 8.9 mg/dL (8.5-10.1); Chloride, Blood 106 mmol/L (98-108); Creatinine, Blood 0.92 mg/dL (0.60-1.20); Globulin, Blood 3.4 g/dL (2.2-4.0); Glomerular Filtration Rate >60 (60-); Glucose, Blood 118 mg/dL (70-99); Potassium, Blood 4.4 mmol/L (3.5-5.5); Sodium, Blood 139 mmol/L (136-145); Total Protein, Blood 6.8 g/dL (6.4-8.2); Troponin I 0.038 ng/mL (0.000-0.040)
[2020-07-16 11:52] LABS: Appearance, Urine Cloudy (Clear); Bilirubin, Urine Neg (Neg); Blood, Urine 5+ (Neg); Color, Urine Yellow (P-Yellow); Glucose Qualitative, Urine Neg (Neg); Ketones, Urine 1+ (Neg); Leukocyte Esterase, Urine 3+ (Neg); Nitrite, Urine Pos (Neg); Protein, Urine 2+ (Neg); Urobilinogen, Urine 1+ (Normal)
[2020-07-16 12:10] LABS: White Blood Cells, Urine TNTC /hpf (0-5)
[2020-07-16 12:12] LABS: Bacteria Many /hpf; Mucus Heavy (0-Heavy); Squamous Epithelial Cells Not Seen /hpf (Few)
[2020-07-16 12:13] LABS: Calcium Oxalate Crystals Mod /hpf
[2020-07-16] MEDS ORDERED: Cipro250 MG PO ×2 (13:37→13:46)
== END 2020-07-16 14:00 | disposition home or self-care (01) ==
LOC: ER 10:49
PROVIDERS: Physician Assistant
DX: N39.0 Urinary tract infection, site not specified (principal); I25.2 Old myocardial infarction; I25.10 Atherosclerotic heart disease of native coronary artery without angina pectoris; E78.00 Pure hypercholesterolemia, unspecified; Z79.02 Long term (current) use of antithrombotics/antiplatelets; Z79.899 Other long term (current) drug therapy; Z91.81 History of falling; Z95.5 Presence of coronary angioplasty implant and graft; Z87.891 Personal history of nicotine dependence
CPT/HCPCS: 51702; 72100; 73502; 80053; 81001; 84484; 85025; 87077; 87086; 87186; 93005; 93010; 99284-25

== ENCOUNTER 2020-07-25 17:30 | Inpatient (IN) | payer OTHER ==
[~2020-07-25] VITALS: Ht 177.8 cm; Wt 89.8 kg
[~2020-07-25 17:30] MED LIST changes: +CALCIUM 500 +1 EAC1 PO; -CALCIUM 600 +1 EAC6 PO; +Cipro250 MG PO
[2020-07-25 18:08] LABS: BASOPHILS ABSOLUTE AUTO 0.04 K/mm3 (0.00-0.23); BASOPHILS PERCENT AUTO 1 % (0-2); EOSINOPHILS ABSOLUTE AUTO 0.16 K/mm3 (0.00-0.68); EOSINOPHILS PERCENT AUTO 3 % (0-6); Hematocrit 35.1 % (37.0-53.0); Hemoglobin 10.7 g/dL (13.5-17.5); IMMATURE GRAN ABSOLUTE AUTO 0.02 K/mm3 (0.00-0.10); IMMATURE GRAN PERCENT AUTO 0 % (0-1); LYMPHOCYTES ABSOLUTE AUTO 0.76 K/mm3 (0.84-5.20); LYMPHOCYTES PERCENT AUTO 12 % (21-46); MONOCYTES ABSOLUTE AUTO 0.35 K/mm3 (0.16-1.47); MONOCYTES PERCENT AUTO 5 % (4-13); Mean Corpuscular HGB 29.2 pg (26.0-34.0); Mean Corpuscular HGB Conc 30.5 g/dL (31.5-36.5); Mean Corpuscular Volume 96 fL (80-100); NEUTROPHILS ABSOLUTE AUTO 5.16 K/mm3 (1.96-9.15); NEUTROPHILS PERCENT AUTO 80 % (41-73); Platelet Count 257 K/mm3 (150-400); RDW Coefficient Variation 16.5 % (11.7-14.2); RDW Standard Deviation 58.4 fL (35.1-46.3); Red Blood Cell Count 3.67 M/mm3 (4.30-5.90); White Blood Cell Count 6.49 K/mm3 (4.00-11.30)
[2020-07-25 18:35] LABS: Troponin I 0.023 ng/mL (0.000-0.040)
[2020-07-25 18:36] LABS: Alanine Aminotransfer (ALT/SGP 20 U/L (12-78); Albumin, Blood 2.9 g/dL (3.4-5.0); Albumin/Globulin Ratio 0.8 (0.8-1.8); Alk Phos 98 U/L (50-136); Anion Gap 9 mmol/L (6-16); Aspartate Aminotrans (AST/SGOT 20 U/L (12-37); Bilirubin, Total 0.5 mg/dL (0.1-1.0); Blood Urea Nitrogen 17 mg/dL (8-24); Bun/Creatinine Ratio 22.4 (12.0-20.0); CO2, Blood 21 mmol/L (21-32); Calcium, Blood 8.5 mg/dL (8.5-10.1); Chloride, Blood 108 mmol/L (98-108); Creatinine, Blood 0.76 mg/dL (0.60-1.20); Globulin, Blood 3.6 g/dL (2.2-4.0); Glomerular Filtration Rate >60 (60-); Glucose, Blood 194 mg/dL (70-99); Potassium, Blood 4.4 mmol/L (3.5-5.5); Sodium, Blood 138 mmol/L (136-145); Total Protein, Blood 6.5 g/dL (6.4-8.2)
[2020-07-25 19:24] LABS: Source, Urine Clean Catch
[2020-07-25 19:26] LABS: Appearance, Urine Clear (Clear); Bilirubin, Urine Neg (Neg); Blood, Urine 1+ (Neg); Color, Urine Yellow (P-Yellow); Glucose Qualitative, Urine Neg (Neg); Ketones, Urine Neg (Neg); Leukocyte Esterase, Urine 2+ (Neg); Nitrite, Urine Neg (Neg); Protein, Urine Neg (Neg); Specific Gravity, Urine 1.005 (1.003-1.022); Urobilinogen, Urine 1+ (Normal); pH, Urine 6.5 (5.0-8.0)
[2020-07-25 19:33] LABS: Bacteria Mod /hpf; Squamous Epithelial Cells Not Seen /hpf (Few); White Blood Cells, Urine 0-2 /hpf (0-5)
[2020-07-25] MEDS ORDERED: OXYC5 PO (20:09)
[2020-07-25] MEDS ORDERED: OMEP20ER PO (21:46)
[2020-07-25 21:48] LABS: Influenza A, PCR Negative (NEGATIVE); Influenza B, PCR Negative (NEGATIVE); Resp Syncytial Virus, PCR Negative (NEGATIVE); SARS-Cov-2 (COVID-19) PCR, MMC Negative (NEGATIVE)
[2020-07-25] MEDS ORDERED: PROLIA60 MG/1 ML SC (21:49)
[2020-07-25 22:47] LABS: International Normalized Ratio 1.09; Prothrombin Time Results 11.6 Sec (9.7-11.5)
[2020-07-25 23:08] LABS: CHOL/HDL RATIO 2.8; Cholesterol 123 mg/dL (50-200); HDL Cholesterol 44 mg/dL (>39); LDL/HDL RATIO 1.4; Low Density Lipoprotein Chol 61 mg/dL (0-110); Triglycerides 91 mg/dL (30-160); Very Low Density Lipoprot Chol 18 mg/dL (6-32)
[2020-07-25] MEDS ORDERED: ACET500 PO (23:33)
--- NOTE | 2020-07-26 01:10 | NUR ---
RECIEVED REPORT FROM JOSE TAYLOR. PATIENT CAME FROM ED TO PCU VIA STRETCHER @2310 AND WAS SLID TO THE BED. PATIENT STATES HE HAS FELT WEAK AND HAD HIP SYRGERY 2 MONTHS AGO SO HIS LEFT HIP IS WEAK. HE IS ALERT AND ORIENTED X4, SEEMS TO BE FORGETFUL AT TIMES ASKING THE SAME QUESTION MORE THAN ONCE. PT STATES HE WEARS CPAP AT HOME, HOSPITALIST CALLED FOR CPAP, PATIENT NOW SLEEPING WITH CPAP ON. 02 SATS >95% ON RA. PATIENT DENIES CP AND SOB. VSS. Q2 HOUR TURNS WITH MAXIMUM ASSIST. PATIENT HAS BARAKAT IN PLACE. CALL LIGHT IN REACH, BED IN LOWEST POSTION, AND BED ALARM ON.
[2020-07-26 02:08] LABS: BASOPHILS ABSOLUTE AUTO 0.04 K/mm3 (0.00-0.23); BASOPHILS PERCENT AUTO 1 % (0-2); EOSINOPHILS ABSOLUTE AUTO 0.15 K/mm3 (0.00-0.68); EOSINOPHILS PERCENT AUTO 3 % (0-6); Hematocrit 32.5 % (37.0-53.0); Hemoglobin 9.7 g/dL (13.5-17.5); IMMATURE GRAN ABSOLUTE AUTO 0.02 K/mm3 (0.00-0.10); IMMATURE GRAN PERCENT AUTO 0 % (0-1); LYMPHOCYTES ABSOLUTE AUTO 1.14 K/mm3 (0.84-5.20); LYMPHOCYTES PERCENT AUTO 22 % (21-46); MONOCYTES ABSOLUTE AUTO 0.47 K/mm3 (0.16-1.47); MONOCYTES PERCENT AUTO 9 % (4-13); Mean Corpuscular HGB 28.7 pg (26.0-34.0); Mean Corpuscular HGB Conc 29.8 g/dL (31.5-36.5); Mean Corpuscular Volume 96 fL (80-100); Mean Platelet Volume 9.5 fL (9.1-12.4); NEUTROPHILS ABSOLUTE AUTO 3.35 K/mm3 (1.96-9.15); NEUTROPHILS PERCENT AUTO 65 % (41-73); Platelet Count 199 K/mm3 (150-400); RDW Coefficient Variation 16.6 % (11.7-14.2); Red Blood Cell Count 3.38 M/mm3 (4.30-5.90); White Blood Cell Count 5.17 K/mm3 (4.00-11.30)
[2020-07-26 02:27] LABS: Anion Gap 3 mmol/L (6-16); Blood Urea Nitrogen 13 mg/dL (8-24); Bun/Creatinine Ratio 18.3 (12.0-20.0); CO2, Blood 26 mmol/L (21-32); Calcium, Blood 7.9 mg/dL (8.5-10.1); Chloride, Blood 114 mmol/L (98-108); Creatinine, Blood 0.71 mg/dL (0.60-1.20); Glomerular Filtration Rate >60 (60-); Glucose, Blood 110 mg/dL (70-99); Potassium, Blood 4.2 mmol/L (3.5-5.5); Sodium, Blood 143 mmol/L (136-145); Troponin I 0.039 ng/mL (0.000-0.040)
--- NOTE | 2020-07-26 05:40 | NUR ---
SHIFT SUMMARY PATIENT SLEPT WITH CPAP ALL NIGHT AFTER ARRIVING TO FLOOR. TURNED PATIENT Q2 HOURS, HE IS A 1 PERSON ASSIST THIS MORNING. NO BOWEL MOVEMENT THIS SHIFT. 02 SATS REMAIN >90% ON RA. VSS, NO ACUTE CHANGES. CALL LIGHT IN REACH, BED IN LOW POSITION, AND BED ALARM ON.
--- NOTE | 2020-07-26 09:22 | NUR ---
PT LOOP RECORDER CHECKED PER V/O DR CAMPOS, APPEARS AFIB/FLUTTER NOW. DR CAMPOS PRESENT DURING CHECK, REPORT ROUTED IN [place] [facility]
--- NOTE | 2020-07-26 10:15 | NUR ---
ECHOCARDIOGRAM COMPLETED
--- NOTE | 2020-07-26 13:48 | NUR ---
CALL TO [facility]ENTER TO DETERMINE PLAN FOR PT. CALLED BACK AND STATED PT IS OK TO EAT AND NPO IN AM
--- NOTE | 2020-07-26 17:42 | NUR ---
Shift summary: Pt has been alert, oriented and cooperative through out shift. Pt is [place], uses call light appropriately. Pt had cardiology consult this AM, pt will be NPO after MN for cardiac cath tomorrow. Heparin gtt and NS IVF running per orders. HR 89, afib on tele. No concerns at this time.
--- NOTE | 2020-07-26 19:51 | NUR ---
CT RADIOLOGY TO ROOM AT APPROX 1940 TO TAKE PT DOWN TO CT SCAN/PE STUDY.
[2020-07-27 05:26] LABS: BASOPHILS ABSOLUTE AUTO 0.04 K/mm3 (0.00-0.23); BASOPHILS PERCENT AUTO 1 % (0-2); EOSINOPHILS ABSOLUTE AUTO 0.23 K/mm3 (0.00-0.68); EOSINOPHILS PERCENT AUTO 5 % (0-6); Hematocrit 31.2 % (37.0-53.0); Hemoglobin 9.5 g/dL (13.5-17.5); IMMATURE GRAN ABSOLUTE AUTO 0.01 K/mm3 (0.00-0.10); IMMATURE GRAN PERCENT AUTO 0 % (0-1); LYMPHOCYTES ABSOLUTE AUTO 0.86 K/mm3 (0.84-5.20); LYMPHOCYTES PERCENT AUTO 18 % (21-46); MONOCYTES ABSOLUTE AUTO 0.39 K/mm3 (0.16-1.47); MONOCYTES PERCENT AUTO 8 % (4-13); Mean Corpuscular HGB 29.3 pg (26.0-34.0); Mean Corpuscular HGB Conc 30.4 g/dL (31.5-36.5); Mean Corpuscular Volume 96 fL (80-100); Mean Platelet Volume 9.5 fL (9.1-12.4); NEUTROPHILS ABSOLUTE AUTO 3.18 K/mm3 (1.96-9.15); NEUTROPHILS PERCENT AUTO 68 % (41-73); Platelet Count 191 K/mm3 (150-400); RDW Coefficient Variation 16.6 % (11.7-14.2); RDW Standard Deviation 59.1 fL (35.1-46.3); Red Blood Cell Count 3.24 M/mm3 (4.30-5.90); White Blood Cell Count 4.71 K/mm3 (4.00-11.30)
[2020-07-27 05:47] LABS: Anion Gap 5 mmol/L (6-16); Blood Urea Nitrogen 10 mg/dL (8-24); Bun/Creatinine Ratio 14.3 (12.0-20.0); CO2, Blood 25 mmol/L (21-32); Calcium, Blood 7.5 mg/dL (8.5-10.1); Chloride, Blood 113 mmol/L (98-108); Glomerular Filtration Rate >60 (60-); Glucose, Blood 100 mg/dL (70-99); Potassium, Blood 3.7 mmol/L (3.5-5.5); Sodium, Blood 143 mmol/L (136-145)
--- NOTE | 2020-07-27 06:23 | NUR ---
SHIFT SUMMARY NO ACUTE CHANGES THIS SHIFT. PT A&OX4. COOPERATIVE AND PLEASANT. FRUSTRATED HE WASNT ABLE TO SLEEP MUCH D/T PEOPLE IN AND OUT OF HIS ROOM (LAB, VITALS, IVS ETC). SP02>92% ON RA. TELEMETRY READS AFLUTTER W/ BBB. HR 80'S. PT DENIES CP. PT IS NPO PER ORDERS. BARAKAT CATHETER DRAINING TO GRAVITY. HEPARIN INFUSING PER EMAR. PT STATES HE WANTS TO KNOW "WHAT IS WRONG WITH ME SO I CAN GO HOME". CALL LIGHT IN REACH. WILL CONTINUE TO MONITOR.
--- NOTE | 2020-07-27 17:43 | NUR ---
SHIFT SUMMARY PT A&Ox4; CALM AND COOPERATIVE WITH CARE. PT NPO THIS AM FOR ATTRACTIONS ASSOCIATE; PT BACK FROM ATTRACTIONS ASSOCIATE AT APPROX 1030 THIS AM. RIGHT RADIAL SITE RECEOVED PER ORDERS; SHADOWING NOTED; NO BLEEIND OR HEMATOMA NOTED. PT DENIES PAIN SINCE RETURN FROM ATTRACTIONS ASSOCIATE. PT DENIES SOB, NAUSEA AND DIZZINESS. BARAKAT IN PLACE, PATIENT AND DRAINING. BM THIS AFTERNOON. VSS. PT EDUCATED ON NEW MEDICATIONS. NO OTHER ACUTE CHAGNES NOTED DURING SHIFT. WILL CONTINUE TO MONITOR UNTIL REPORT GIVEN TO ONCOMING RN.
[2020-07-28 04:43] LABS: BASOPHILS ABSOLUTE AUTO 0.03 K/mm3 (0.00-0.23); BASOPHILS PERCENT AUTO 1 % (0-2); EOSINOPHILS ABSOLUTE AUTO 0.21 K/mm3 (0.00-0.68); EOSINOPHILS PERCENT AUTO 4 % (0-6); Hematocrit 30.3 % (37.0-53.0); Hemoglobin 9.3 g/dL (13.5-17.5); IMMATURE GRAN ABSOLUTE AUTO 0.02 K/mm3 (0.00-0.10); IMMATURE GRAN PERCENT AUTO 0 % (0-1); LYMPHOCYTES PERCENT AUTO 17 % (21-46); MONOCYTES ABSOLUTE AUTO 0.42 K/mm3 (0.16-1.47); MONOCYTES PERCENT AUTO 9 % (4-13); Mean Corpuscular HGB Conc 30.7 g/dL (31.5-36.5); Mean Corpuscular Volume 94 fL (80-100); Mean Platelet Volume 10.1 fL (9.1-12.4); NEUTROPHILS ABSOLUTE AUTO 3.24 K/mm3 (1.96-9.15); NEUTROPHILS PERCENT AUTO 69 % (41-73); Platelet Count 183 K/mm3 (150-400); RDW Coefficient Variation 16.6 % (11.7-14.2); RDW Standard Deviation 57.2 fL (35.1-46.3); Red Blood Cell Count 3.21 M/mm3 (4.30-5.90); White Blood Cell Count 4.72 K/mm3 (4.00-11.30)
[2020-07-28 05:01] LABS: Alanine Aminotransfer (ALT/SGP 15 U/L (12-78); Albumin, Blood 2.5 g/dL (3.4-5.0); Albumin/Globulin Ratio 0.8 (0.8-1.8); Alk Phos 68 U/L (50-136); Anion Gap 6 mmol/L (6-16); Aspartate Aminotrans (AST/SGOT 17 U/L (12-37); Bilirubin, Total 0.4 mg/dL (0.1-1.0); Blood Urea Nitrogen 8 mg/dL (8-24); Bun/Creatinine Ratio 9.8 (12.0-20.0); CO2, Blood 23 mmol/L (21-32); Calcium, Blood 7.9 mg/dL (8.5-10.1); Chloride, Blood 115 mmol/L (98-108); Creatinine, Blood 0.82 mg/dL (0.60-1.20); Glomerular Filtration Rate >60 (60-); Glucose, Blood 91 mg/dL (70-99); Magnesium, Blood 2.1 mg/dL (1.6-2.4); Phosphorus, Blood 2.6 mg/dL (2.5-4.9); Potassium, Blood 3.8 mmol/L (3.5-5.5); Sodium, Blood 144 mmol/L (136-145); Total Protein, Blood 5.5 g/dL (6.4-8.2)
--- NOTE | 2020-07-28 07:50 | NUR ---
SHIFT SUMMARY PATIENT PLEASENT THROUGHOUT THE NIGHT. PATIENT VERY CHEERFUL AND APPEARED TO ENJOY TALKING WITH STAFF. PATIENT STATED THAT HE FELT VERY LONELY. PATIENT TURNED FREQUENTLY. PATIENT USED HIS CPAP FOR SEVERAL HOURS BUT THEN HE REQUESTED TO NO LONGER WEAR IT SINCE HE DID NOT THINK THE "CARBON DIOXIDE" WAS ABLE TO GET OUT. PATIENT STATED, "I THINK I'M GETTING CARBON DIOXIDE POISONING." PATIENT PROVIDED EDUCATION ON THE CPAP BY BOTH RN AND RESPIRTORY THERAPY, HOWEVER PATIENT STILL DECLINED TO WEAR HIS CPAP FOR THE REST OF THE NIGHT. PATIENT'S ANGIO SITE TO RIGHT WRIST APPEARED TO HAVE NO CHANGES THROUGHOUT THE NIGHT. ARMBOARD IN PLACE. REPORT GIVEN TO ONCOMING RN.
--- NOTE | 2020-07-28 17:55 | NUR ---
SHIFT SUMMARY PT IS ALERT AND ORIENTEDx4, ANY ACTIVITY PT WOULD C/O DIZZINESS. ORTHOSTATIC VITALS TAKEN AND RESULTS REPORTED AND DISCUSSED WITH CARDIOLOGY. PT/OT ORDERED TODAY AND PHYSICAL THERAPY EVALUATED PT'S VESTIBULAR FUNCTION AND FOUND THE LEFT SIDE TO BE AFFECTED. SEE PHYSICAL THERAPY NOTE NOTE FOR FURTHER INFORMATION. VITALS HAVE BEEN STABLE. PT WAS STATUS CHANGED TO MEDICAL/NO TELE THIS AFTERNOON. PRIOR TO REMOVAL OF TELE, PT WAS NOTED TO BE IN A-FIB. PT'S RIGHT RADIAL SITE REMAINS SOFT/BRUISED, DRESSING C/D/I, ARMBOARD IN PLACE.
--- NOTE | 2020-07-29 04:25 | NUR ---
SHIFT SUMARY NO ACUTE CHANGES THIS SHIFT. VSS. AXO. REMAINS ON RA. USED CPAP FOR HALF OF NIGHT BUT ULTIMATELY DID NOT TOLERATE HOSPITALS EQUIPMENT. HAS BEEN ON RA SINCE W/OUT RESPIRATORY ISSUE. CHRONIC BARAKAT REMAINS PATENT AND DRAINING CLEAR YELLOW URINE. PT HAS DENIED CP/PRESSURE T/O SHIFT. R RADIAL ACCESS SITE HAS SHOWN HEMATOMA MOVEMENT BUT PRESAENTS MORE OLD HEMATOMA LEAKAGE FROM IMMEDIATELY PROXIMAL TO ACCESS TO FARTHER UP THE FOREARM. INSTEAD OF ALL FLUID BEING BUILT UP NEAR ACCESS, FLUID COVERING LARGER AREA BUT NOT THICH OR DISTENDED. HAVE MONITORED THIS AND HAVE NOT SEEN MOVEMENT OR BOUNDARY CHANGES ON THIS SHIFT. ARMBOARD REMAINS IN PLACE. OTHERWISE, PT RESTING IN ROOM QUIETELY. WILL CONTINUE TO MONITOR UNTIL SHIFT CHANGE.
--- NOTE | 2020-07-29 17:04 | NUR ---
SHIFT SUMMARY: NO ACUTE CHANGES T/OUT SHIFT TODAY. PT CONTINUES A&O, O2 SATS >93% ON ROOM AIR. BARAKAT CONTINUES PATENT AND DRAINING CLEAR, YELLOW URINE TO GRAVITY. HEMATOMA TO RIGHT FOREARM APPEARS UNCHANGED T/OUT SHIFT, PT DENIES PAIN WITH PALPATION, SKIN SOFT TO TOUCH, ARM BOARD CONTINUES IN PLACE. PT REPOSITIONED FREQUENTLY T/OUT SHIFT, C/O PAIN TO COCCYX, REDNESS NOTED WITH MINIMAL SKIN BREAKDOWN, AREA CLEANED AND MEPILEX APPLIED. PT IN TO WORK WITH PT TODAY. PT ASSISTED TO SIT ON BEDSIDE, C/O DIZZINESS AND INABILITY TO FULLY SUPPORT HIS OWN WEIGHT WHICH APPEARS CONSISTENT WITH YESTERDAY'S ASSESSMENT. PT TRANSFERED TO MEDICAL DEPT. REPORT HAS BEEN GIVEN TO CLAUDIA DOWNEY.
--- NOTE | 2020-07-29 19:12 | NUR ---
RECIEVED PT FROM PCU ON [facility]. PT RESTING IN BED, MAKES NO COMPLAINTS AT THIS MOMENT. PT MED COMPLIANT AND COOPERATIVE. STAFF WILL CONT. TO MONITOR.
--- NOTE | 2020-07-30 06:54 | NUR ---
SHIFT SUMMARY PT IS AN 85 Y/O MALE, ADMITTED FOR HYPOTENSION. HE IS A&O X 3, 2PA OUT OF BED, WITH A CHRONIC BARAKAT IN PLACE. HE WAS MEDICATED ONCE FOR A ASHBY AT HS WITH PRN TYLENOL. NO C/O NAUSEA, SOB OR DIZZINESS. VITAL SIGNS STABLE. PT SLEPT WELL THROUGH THE NIGHT. NO ACUTE CHANGES IN PT CONDITION NOTED. WILL CONTINUE TO MONITOR AND TREAT PER EMAR UNTIL HAND OFF TO DAY SHIFT RN.
--- NOTE | 2020-07-30 18:17 | NUR ---
SHIFT SUMMARY PATIENT DENIES PAIN, NAUSEA, AND SHORTNESS OF BREATH. OCCASSIONALLY DIZZY WITH REPOSITION. WORKED WITH PT TODAY, ABLE TO STAND AT BEDSIDE FOR 20 SECONDS WITH FWW AND ASSISTANCE. CHRONIC BARAKAT PATENT AND DRAINING. EATING AND DRINKING WELL. VISITED IN AFTERNOON. AWAITING PRE-AUTH FOR DISCHARGE TO REHAB.
--- NOTE | 2020-07-31 07:36 | NUR ---
SHIFT SUMMARY PT IS AN 85 Y/O MALE, ADMITTED FOR HYPOTENSION AND DIZZINESS. HE IS A&O X 4, 2P MAX ASSIST OUT OF BED. PT DENIED ANY EPISODES OF DIZZINESS, PAIN OR NAUSEA. VITAL SIGNS STABLE. CHRONIC INDWELLING BARAKAT IN PLACE, PATENT AND DRAINING. NO ACUTE CHANGES IN PT CONDITION NOTED DURING THE NIGHT. REPORT GIVEN TO ONCOMING RN.
--- NOTE | 2020-07-31 17:36 | NUR ---
SHIFT SUMMARY PATIENT REPORTS MILD ABDOMINAL PAIN R/T BLADDER DISTENTION FROM KINKED BARAKAT LINE LAST NIGHT. BARAKAT FLUSHED THIS AM, PATENT AND DRAINING. BLADDER SCAN SHOWS 0 MLS. PATIENT DECLINES PAIN MEICATION AND KPAD. DENIES NAUSEA AND SHORTNESS OF BREATH. DECLINES OOB TODAY. NAPPING MOST OF SHIFT. VISTED IN AFTERNOON. EATING AND DRINKING WELL.
--- NOTE | 2020-08-01 06:41 | NUR ---
SHIFT SUMMARY PT IS AN 85 Y/O MALE, ADMITTED FOR HYPOTENSION AND SYNCOPE. HE IS A&O X 3, MILDLY FORGETFUL AT TIMES. PT IS A 2P MAX ASSIST OUT OF BED, WITH POOR TRUNK CONTROL. PT DID REPORT MILD ABD PAIN, BUT REFUSED ANY PAIN MEDICATIONS OR HEAT PAD. NO C/O NAUSEA OR SOB. VITAL SIGNS STABLE. CHRONIC INDWELLING BARAKAT IN PLACE, PATENT AND DRAINING. PT SLEPT WELL THROUGH THE NIGHT. NO ACUTE CHANGES IN PT CONDITION NOTED. WILL CONTINUE TO MONITOR AND TREAT PER EMAR UNTIL HAND OFF TO DAY SHIFT RN.
--- NOTE | 2020-08-01 14:09 | NUR ---
Met Pt. lying in bed resting pt. reports to be doing much bretter.encouraged pt. andoffered prayers
--- NOTE | 2020-08-01 18:34 | NUR ---
ADMIT:07/25/20 DISCHARGE: DX: hypotension CC: cpeabody ADMIT: 06/16/20 DISCHARGE: 06/21/20 DX: left hip fracture CC: [email or web address] ADMIT: 03/02/19 DISCHARGE: DX: 03/03/19 SYNCOPE AND COLLAPSE CC: ADMIT: 06/10/17 DISCHARGE: 06/14/17 AGUSTÍN CALL: Last discharge to [facility] 06/21/20 RESIDENCE: Home with Luz Maria CAREGIVER: Luz Maria Mccall, Spouse / Partner, DX: HARD OF HEARING HTN, PND, DANNIE, CORONARY ARTERIOSCLEROIS, GOUT, REFULX, MILD LEFT VENT SYS DYS. MULTIPLE STENTS, SEE PROB LIST DME: BIPAP ASV- R[facility], cpap prior to ASV CCM: None HOME HEALTH: [facility] - currently on service SUMMARY: admit 07/25/20 08/01/[address] Cedillo, Tremayne stable for discharge to SNF. 08/01/19 PT OT reccomend SNF. Met with Tremayne, preference is [facility] rehab, but speak with his . s/w , very unhappy with last stay at [facility], sent him home before he could walk, did not order a wheelchair for him, Home health took 2 weeks to start. This residential mortgage underwriter offered to be a resource for her at discharge from [facility] if she is not happy with discharge. She prefers [facility]. Concerns with coverage at [facility], has not been 60 days since last discharge. 100% coverage by insurance may not be available for 1st 20 days. Asked Deyanira to check on copay if applys. Plan to follow for SNF approval and discharge to [facility]. [facility] today at 3 pm. CP 07/30/19 PT recommends SNF. cp 07/28/20 Cardiology signing off today. Tremayne complaining of dizziness, PT evaluation today recommending SNF Dr Palmer physician for the weekend. she may want Tremayne to go to snf over the weekend. Please contact [facility] for further assistance with this patient. Firer Bisque Kiln has not been in contact with Tremayne or during this hospital stay. cpeabody. 07/[address] Delacruz, marah eta discharge. Angiogram scheduled for Sat am. Cardiology consult 07/26/20 PROBLEMS: 1: Elevated troponin A/P: - Patient presenting with flat trivial troponin levels, with no significant new chest pain or ekg changes, in the setting of syncope and hypotension, likely related to polypharmacy. He had a stress test in 11/2019 with largely fixed anterior wall defect and small mild inferior wall ischemia. 2: Hypotension, Syncope. A/P: - Likely releated to polypharmacy, Ataxia, and orthostasis.
--- NOTE | 2020-08-01 20:12 | NUR ---
SHIFT SUMMARY- PT ALERT AND ORIENTED 1PA WITH POSSITION CHANGES IN BED, 2P MAX ASSIST WITH TRANSFERS OOB. PT HAS BEEN IN BED ALL SHIFT Q2 TURNS TO PREVENT SKIN BREAKDOWN. PT SPOUSE CAME IN TO SEE HIM THIS EVENING AND SPOKE TO THE DR ON THE PHONE. THE DR CALLED HER LATER TO CLARIFY THE INFORMATION, PT WAS UPSET FOR A BIT AFTER THAT, CALLED [facility] FOR ASSISTANCE TO SIT WITH THE PT AND LISTEN TO HIS CONCERNS, POSSIBLY PRAY WITH HIM IF NEEDED. RECIEVED A CALL THIS EVENING FROM THE [facility] TO CLARIFY INFORMATION. UPDATE WAS PROVIDED. PLAN IS FOR THE PT TO DISCHARGE TO [facility]. BEDSIDE REPORT COMPLETED WITH NIGHT RN YOBANI, NO S&S OF DISTRESS NOTED AT THE TIME OF SHIFT CHANGE.
--- NOTE | 2020-08-02 06:48 | NUR ---
85 year old MAle with chronic thurman or self cath for retention continues with minmal complains. No out of bed this shift. Day RN reports positive orthostic BP yesterday. Needs assist to turn in bed Q 2 hrs.
--- NOTE | 2020-08-02 14:01 | NUR ---
Met pt lying in bed resting, Pt reports doing fine encouraged pt and offered prayers.
--- NOTE | 2020-08-02 17:31 | NUR ---
SHIFT SUMMARY PT CALLS APPROPRIATELY, VERY [place]. AT BEDSIDE TODAY; WAS CRYING BECAUSE SHE WAS WORRIED ABOUT FINANCIAL MATTERS R/T RECOMMENDATIONS THAT THIS PT WILL GO TO SNF. SHE IS WORRIED THAT SHE WONT BE ABLE TO PAY FOR THE AMOUNT THAT THEY ARE ASKING. SEE CLIENT SERVICE MANAGER NOTES FOR FURTHER PLAN. PT WORKED WITH PT/OT TODAY. ORTHOSTATIC BP IN AM- PT FELT DIZZY WHEN CHANGING POSITIONS. DENIES PAIN. BED ALARM IS ON AND CALL LIGHT WITHIN REACH.
--- NOTE | 2020-08-02 19:04 | NUR ---
08/02/19 Tremayne was accepted to [facility] today for snf, but states they are unable to pay the $150.00 copay for him to go. Called Luz Maria by telephone, she was very unhappy with co pay cost and refused discharge to SNF, told her I would look for alternatives. She planned to be in hospital this afternoon. Requested Deyanira in care management review him for [facility]. [facility] not [facility] because he needs PT OT rehab, not available at [facility]. Tremayne can get PT OT home health for rehab, but his says she cannot take care of him at home. I will contact PT OT to help me assess what he would need for equipment for home discharge. Dr Cedillo feels Tremayne should be ready for discharge Saturday, This documentation writer did not make contact with Denisa at the hospital today. I have not discussed him discharging home with her as the only option yet. Will contact Dneisa Jimenez am. AUDREY
--- NOTE | 2020-08-03 07:26 | NUR ---
PT continues with minimal activity poor oral intake & poor fluid intake. Pleasant & talkative. Needs 2 assist for bed mobility. 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 Set up with ensure despite PTs decline & he drank 100%. Another ensure left at bedside. DC planning continues. PT's family cannot afford for SNF stay nor provide level of care he needs.
--- NOTE | 2020-08-03 17:39 | NUR ---
08/03/20 PT and OT worked with Tremayne today, can stand and pivot to wheelchair. very unsteady on his feet, painful due to neuropathy in feet and recent hip fracture. 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 PT recommended that nursing get him up several times a day to help work on becoming more steady on his feet. ETA discharge date ? Discussed discharge home being his only option at this time due to inablility to pay for copay at SNF.
--- NOTE | 2020-08-03 18:34 | NUR ---
SHIFT SUMMARY PT ALERT AND VERY [place]. STARTED ON MECLIZINE TODAY FOR DIZZINESS. PT DENIES PAIN; AT BEDSIDE TODAY. PT WORKED WITH PT TODAY AND WAS ABLE TO PARTICIPATE. THIS AM BOWEL CARE GIVEN; AND PT HAD BM TODAY X2. PT HAD AN MRI TODAY FOR LIGHTHEADEDNESS. PT IS 2P ASSIST MODERATE TO MAXIMAL; AND ABLE TO USE FWW WITH GAITBELT. ENCOURAGE GETTING UP FOR MEALS. BED ALARM IS ON AND CALL LIGHT WITHI REACH.
--- NOTE | 2020-08-04 04:20 | NUR ---
85 year old Male admitted 07/27/2020 with dizziness, weakness & persistant inability to ambulate continues to have issues with dizziness. Antivert started TID & he had Brain MRI & carotid US. He has hx of cardiac cath several times remote with stents x 3 removed & replaced per report. He makes minimal movements in bed 2 assist for bed mobility. Continues with thurman coude cath placed for chronic retention. Long hx of retention self cathed at home until recently. to elderly unable to care for PT at home & unable to afford SNF for Rehab or director long term care care. Working with dc planning for safe placement. LT hip fx repair after fall 2.5 months ago & unable to mobilize safely since. Appetite better fed self 75 % dinner took ensures with set up & cues.
--- NOTE | 2020-08-04 18:11 | NUR ---
SUMMARY PT IS A/O X3. GENERALLY PLEASANT. HE STATE CONTINUING WEAKNESS/FATIGUE. STATE CONTINUING DIZZINESS WHEN HE ATTEMPTS TO GET UP OR AMBULATE. DR DELUNA STARTED MECLAZINE YESTERDAY HOWEVER PT STATE SO FAR INEFFECTIVE. HE WAS UP BRIEFLY TO CHAIR w PHYTHER HOWEVER HAS SPENT MOST OF DAY IN BED. ORTHO VS NEGATIVE THIS AM, BLOOD PRESSURE STABLE. TYLENOL GIVEN THIS AFTERNOON, PT STATE PAIN "TAILBONE", ENCOURAGED TO TURN FREQUENTLY IN BED, SUPPORTED w PILLOWS.
--- NOTE | 2020-08-04 19:09 | NUR ---
08/04/20 and Tremayne decided to pay copay and go to [facility] for snf. Tremayne did not think he got very good rehab at [facility]. Sent checklist to Deyanira, she is having SNF review. Need insurance auth, Deyanira requested. León will need to bring his ASV bipap to the facility for use. Will need Covid test prior to discharge. ETA discharge Saturday. Please notifiy of approval and transport time.
--- NOTE | 2020-08-05 04:13 | NUR ---
PATIENT HAD UNEVENTFUL NIGHT. NO COMPLAINTS OF PAIN OR DISCOMFORT. WORE SCD's FOR APPROX 1/2 OF THE SHIFT THEN REQUESTED FOR THEM TO BE REMOVED. VITALS STABLE AND WNL. NO ACUTE CHANGES NOTED OR REPORTED AT THIS TIME. WILL CONTINUE TO MONITOR AND PROVIDE CARE NEEDED. CALL LIGHT WITHIN REACH.
--- NOTE | 2020-08-05 14:24 | NUR ---
ADMIT:07/25/20 DISCHARGE: 08/05/20 to [facility] DX: hypotension CC: cpeabody; kwilcox SUMMARY: SUMMARY: admit 07/25/20 08/05/20- spoke with about pt d/c. Informed her that he will be going to [facility]. She expressed concern about when he will be d/c from [facility] to home. Discussed with her the option of having [facility] home health come back to the home to help with her needs. Let her know that a note would be placed to PCP's staff asking for them to put the order in for home health when he d/c from [facility]. expressed understanding. Informed that once transportation is set up for him to leave, she would be notified. She stated that she was here at the hospital and was coming to be with him during visitng hours. Encouraged her to work with the nurse when she reviews his d/c and encouraged her to communicate with the nurse any of her concerns as they work towards his d/c. She expressed understanding. -lolita
[2020-08-05] MEDS ORDERED: ASPI81CH PO (16:01)
[2020-08-05] MEDS ORDERED: FERSU300 PO (16:01)
[2020-08-05] MEDS ORDERED: MECL25 PO (16:02)
[2020-08-05] MEDS ORDERED: ERGO400 PO (16:03)
[2020-08-05 16:33] LABS: Influenza A, PCR Negative (NEGATIVE); Influenza B, PCR Negative (NEGATIVE); Resp Syncytial Virus, PCR Negative (NEGATIVE); SARS-Cov-2 (COVID-19) PCR, MMC Negative (NEGATIVE)
--- NOTE | 2020-08-05 17:57 | NUR ---
DISCHARGE DISCHARGE TO [facility] FOR RE[facility]. PATIENT TRANSFERED VIA [facility] WHEELCHAIR TRANSPORT. DISCHARGE PACKET WITH ACCOUNT ASSISTANT. BELONGINGS WITH PATIENT. REPORT CALLED TO [facility] NURSE.
== END 2020-08-05 17:52 | DRG 251 ==
LOC: ER 17:30 → PCU 17:31 → MEDS 07-27 15:39 → PCU 07-27 15:39 → MEDS 07-29 16:50 → ENPENDDIS 08-05 15:07 → MEDS 08-05 17:52
PROVIDERS: Hospitalist; Internal Medicine; Student in an Organized Health Care Education/Training Program; ADMIT Family Medicine
PROC: 02703ZZ Dilation of Coronary Artery, One Artery, Percutaneous Approach (ICD-10-PCS; principal; 2020-07-27)
PROC: 4A023N7 Measurement of Cardiac Sampling and Pressure, Left Heart, Percutaneous Approach (ICD-10-PCS; 2020-07-27)
PROC: B2111ZZ Fluoroscopy of Multiple Coronary Arteries using Low Osmolar Contrast (ICD-10-PCS; 2020-07-27)
DX: I21.4 Non-ST elevation (NSTEMI) myocardial infarction (principal); I50.30 Unspecified diastolic (congestive) heart failure; T82.897A Other specified complication of cardiac prosthetic devices, implants and grafts, initial encounter; I25.2 Old myocardial infarction; E03.9 Hypothyroidism, unspecified; Z89.022 Acquired absence of left finger(s); Z87.891 Personal history of nicotine dependence; Z90.79 Acquired absence of other genital organ(s); Z79.01 Long term (current) use of anticoagulants; K21.9 Gastro-esophageal reflux disease without esophagitis; Z95.5 Presence of coronary angioplasty implant and graft; I25.10 Atherosclerotic heart disease of native coronary artery without angina pectoris; E78.5 Hyperlipidemia, unspecified; G47.33 Obstructive sleep apnea (adult) (pediatric); M81.0 Age-related osteoporosis without current pathological fracture; I48.91 Unspecified atrial fibrillation; N40.1 Benign prostatic hyperplasia with lower urinary tract symptoms; J43.9 Emphysema, unspecified; Z85.46 Personal history of malignant neoplasm of prostate; S72.002D Fracture of unspecified part of neck of left femur, subsequent encounter for closed fracture with routine healing; R48.0 Dyslexia and alexia; I77.810 Thoracic aortic ectasia; Z55.0 Illiteracy and low-level literacy; I49.3 Ventricular premature depolarization; I95.1 Orthostatic hypotension; E86.1 Hypovolemia; Z79.82 Long term (current) use of aspirin; Y92.9 Unspecified place or not applicable
CPT/HCPCS: 0241U; 36415; 51702; 70450; 70553; 71260; 71275; 74175; 76937; 80048; 80053; 80061; 81001; 83605; 83690; 83735; 84100; 84145; 84484; 85025; 85049; 85347; 85379; 85610; 85730; 87086; 92920; 93005; 93010; 93291; 93306; 93458; 93880; 94660; 94762; 96360-59; 96361-59; 96374; 96376; 97110; 97112; 97162; 97166; 97530; 97535; 99152; 99153; 99285-25; A9270; A9270-GY; A9579; C1725; C1769; C1887; C1894; G0378; J1644; J2250; J3010; J7030; J7050; Q9967

== ENCOUNTER 2020-08-15 04:34 | Inpatient (IN) | payer OTHER ==
[~2020-08-15] VITALS: Ht 182.9 cm; Wt 97.5 kg
[~2020-08-15 04:34] MED LIST changes: +ACET500 PO; +ASPI81CH PO; +ERGO400 PO; +FERSU300 PO; +MECL25 PO; +OXYC5 PO; +PROLIA60 MG/1 ML SC
[2020-08-15 05:25] LABS: BASOPHILS ABSOLUTE AUTO 0.04 K/mm3 (0.00-0.23); BASOPHILS PERCENT AUTO 0 % (0-2); EOSINOPHILS ABSOLUTE AUTO 0.03 K/mm3 (0.00-0.68); EOSINOPHILS PERCENT AUTO 0 % (0-6); Hematocrit 40.7 % (37.0-53.0); Hemoglobin 12.6 g/dL (13.5-17.5); IMMATURE GRAN ABSOLUTE AUTO 0.05 K/mm3 (0.00-0.10); IMMATURE GRAN PERCENT AUTO 1 % (0-1); LYMPHOCYTES ABSOLUTE AUTO 0.84 K/mm3 (0.84-5.20); LYMPHOCYTES PERCENT AUTO 9 % (21-46); MONOCYTES ABSOLUTE AUTO 0.68 K/mm3 (0.16-1.47); MONOCYTES PERCENT AUTO 7 % (4-13); Mean Corpuscular Volume 94 fL (80-100); Mean Platelet Volume 10.8 fL (9.1-12.4); NEUTROPHILS PERCENT AUTO 84 % (41-73); Platelet Count 221 K/mm3 (150-400); RDW Coefficient Variation 16.3 % (11.7-14.2); RDW Standard Deviation 56.2 fL (35.1-46.3); Red Blood Cell Count 4.34 M/mm3 (4.30-5.90); White Blood Cell Count 9.94 K/mm3 (4.00-11.30)
[2020-08-15 05:39] LABS: Albumin/Globulin Ratio 1.1 (0.8-1.8); Bilirubin, Total 0.8 mg/dL (0.1-1.0); Bun/Creatinine Ratio 15.3 (12.0-20.0); Calcium, Blood 10.1 mg/dL (8.5-10.1); Creatinine, Blood 1.37 mg/dL (0.60-1.20); Globulin, Blood 3.7 g/dL (2.2-4.0); Potassium, Blood 4.4 mmol/L (3.5-5.5); Total Protein, Blood 7.7 g/dL (6.4-8.2); Troponin I 0.061 ng/mL (0.000-0.040)
[2020-08-15] MEDS ORDERED: NITR100CA PO ×2 (06:10→14:37)
[2020-08-15] MEDS ORDERED: NITR.4SL SL (06:13)
[2020-08-15 08:18] LABS: Source, Urine Catheter
[2020-08-15 08:24] LABS: Appearance, Urine Hazy (Clear); Blood, Urine 4+ (Neg); Color, Urine Amber (P-Yellow); Glucose Qualitative, Urine Neg (Neg); Ketones, Urine 3+ (Neg); Leukocyte Esterase, Urine 3+ (Neg); Nitrite, Urine Pos (Neg); Protein, Urine 3+ (Neg); Urobilinogen, Urine 1+ (Normal)
[2020-08-15 09:01] LABS: Bilirubin, Urine 1+ (Neg)
[2020-08-15 09:08] LABS: Red Blood Cells, Urine 50-100 /hpf (0-2)
[2020-08-15 09:09] LABS: Bacteria Many /hpf; Calcium Oxalate Crystals Rare /hpf; Renal Epithelial Rare /hpf (0-Rare); Squamous Epithelial Cells Rare /hpf (Few); Transitional Epithelial Cells Few /hpf (0-Rare); Yeast/Fungi Urine Few /hpf
[2020-08-15] MEDS ORDERED: ACET500 PO (14:38)
--- NOTE | 2020-08-15 15:51 | NUR ---
08/15/20 Patient sleeping, left my name and telephone number on White board in room, Dr Cline seeing patient, came in from [facility], will need a new face to face and new covid test before returning . Changed from OBS to inpatient today. No ETA for discharge at this time. cp
--- NOTE | 2020-08-15 17:44 | NUR ---
PT RESTING IN BED WITH DINNER TRAY AND GRAND DAUGHTER AT BEDSIDE. PT MAKES NO COMPLAINTS AT THIS TIME. MEP PLACED ON [place] AREA FOR PROTECTION. PT REMAINS LABILE, PARANOID ABOUT STAFF TRYING TO POISON HIM ([place] BETTER WITH FAMILY AT SIDE). NS RUNNING AT 125 AND WNL. STAFF WILL CONT. TO MONITOR.
--- NOTE | 2020-08-16 04:23 | NUR ---
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
[2020-08-16 05:30] LABS: BASOPHILS ABSOLUTE AUTO 0.04 K/mm3 (0.00-0.23); BASOPHILS PERCENT AUTO 1 % (0-2); EOSINOPHILS ABSOLUTE AUTO 0.15 K/mm3 (0.00-0.68); EOSINOPHILS PERCENT AUTO 3 % (0-6); Hematocrit 31.1 % (37.0-53.0); Hemoglobin 9.4 g/dL (13.5-17.5); IMMATURE GRAN ABSOLUTE AUTO 0.03 K/mm3 (0.00-0.10); IMMATURE GRAN PERCENT AUTO 1 % (0-1); LYMPHOCYTES PERCENT AUTO 21 % (21-46); MONOCYTES ABSOLUTE AUTO 0.45 K/mm3 (0.16-1.47); MONOCYTES PERCENT AUTO 10 % (4-13); Mean Corpuscular HGB 28.7 pg (26.0-34.0); Mean Corpuscular HGB Conc 30.2 g/dL (31.5-36.5); Mean Corpuscular Volume 95 fL (80-100); Mean Platelet Volume 10.9 fL (9.1-12.4); NEUTROPHILS PERCENT AUTO 64 % (41-73); Platelet Count 140 K/mm3 (150-400); RDW Coefficient Variation 16.6 % (11.7-14.2); RDW Standard Deviation 58.7 fL (35.1-46.3); Red Blood Cell Count 3.27 M/mm3 (4.30-5.90); White Blood Cell Count 4.37 K/mm3 (4.00-11.30)
[2020-08-16 06:05] LABS: Alanine Aminotransfer (ALT/SGP 17 U/L (12-78); Albumin, Blood 2.8 g/dL (3.4-5.0); Albumin/Globulin Ratio 1.2 (0.8-1.8); Alk Phos 62 U/L (50-136); Anion Gap 8 mmol/L (6-16); Aspartate Aminotrans (AST/SGOT 19 U/L (12-37); Bilirubin, Total 0.5 mg/dL (0.1-1.0); Blood Urea Nitrogen 16 mg/dL (8-24); Bun/Creatinine Ratio 17.6 (12.0-20.0); CO2, Blood 27 mmol/L (21-32); Chloride, Blood 108 mmol/L (98-108); Creatinine, Blood 0.91 mg/dL (0.60-1.20); Globulin, Blood 2.4 g/dL (2.2-4.0); Glomerular Filtration Rate >60 (60-); Glucose, Blood 91 mg/dL (70-99); Potassium, Blood 3.6 mmol/L (3.5-5.5); Sodium, Blood 143 mmol/L (136-145); Total Protein, Blood 5.2 g/dL (6.4-8.2)
--- NOTE | 2020-08-16 18:17 | NUR ---
SUMMARY: admit 08/15/20 08/16/[address] Wililam, Tremayne tearful and hallucinating, Will order PT and OT to evaluate for discharge placement. is concerned for his depression, not doing well at rehab. unable to meet his care needs at home. Will follow for discharge planning. cp.
--- NOTE | 2020-08-16 18:38 | NUR ---
NO ACUTE CHANGES. PT IS ALERT AND ORIENTED, TEARFUL AT TIMES. NO ADVERSE TELE REPORTS. PTS AT BEDSIDE, CALL LIGHT WITHIN REACH.
--- NOTE | 2020-08-17 04:49 | NUR ---
SHIFT SUMMARY PATIENT HAD NO ACUTE CHANGES OBSERVED. AXOX 3 AND TWO ASSIST TO BSC. TAKES MEDICATION IN APPLE SAUCE. EXTREME [place]. PIV REMAINS INTACT. 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 BARAKAT PATENT AND DRAINING FOR RETENTION. VSS/AFEBRILE. DENIES PAIN, SOB, AND N/V. CALL LIGHT IN REACH. BED IN LOWEST POSITION. WILL CONTINUE TO MONITOR UNTIL DAY SHIFT NURSE ASSUMES CARE.
[2020-08-17 05:09] LABS: BASOPHILS ABSOLUTE AUTO 0.04 K/mm3 (0.00-0.23); BASOPHILS PERCENT AUTO 1 % (0-2); EOSINOPHILS ABSOLUTE AUTO 0.23 K/mm3 (0.00-0.68); EOSINOPHILS PERCENT AUTO 6 % (0-6); Hematocrit 32.7 % (37.0-53.0); IMMATURE GRAN ABSOLUTE AUTO 0.01 K/mm3 (0.00-0.10); IMMATURE GRAN PERCENT AUTO 0 % (0-1); LYMPHOCYTES ABSOLUTE AUTO 0.86 K/mm3 (0.84-5.20); LYMPHOCYTES PERCENT AUTO 21 % (21-46); MONOCYTES ABSOLUTE AUTO 0.44 K/mm3 (0.16-1.47); MONOCYTES PERCENT AUTO 11 % (4-13); Mean Corpuscular HGB 29.2 pg (26.0-34.0); Mean Corpuscular HGB Conc 30.6 g/dL (31.5-36.5); Mean Corpuscular Volume 96 fL (80-100); Mean Platelet Volume 10.8 fL (9.1-12.4); NEUTROPHILS ABSOLUTE AUTO 2.48 K/mm3 (1.96-9.15); NEUTROPHILS PERCENT AUTO 61 % (41-73); Platelet Count 137 K/mm3 (150-400); RDW Coefficient Variation 16.2 % (11.7-14.2); RDW Standard Deviation 57.3 fL (35.1-46.3); Red Blood Cell Count 3.42 M/mm3 (4.30-5.90); White Blood Cell Count 4.06 K/mm3 (4.00-11.30)
[2020-08-17 05:45] LABS: Alanine Aminotransfer (ALT/SGP 17 U/L (12-78); Albumin, Blood 2.9 g/dL (3.4-5.0); Albumin/Globulin Ratio 1.1 (0.8-1.8); Alk Phos 68 U/L (50-136); Anion Gap 6 mmol/L (6-16); Aspartate Aminotrans (AST/SGOT 17 U/L (12-37); Bilirubin, Total 0.7 mg/dL (0.1-1.0); Blood Urea Nitrogen 9 mg/dL (8-24); Bun/Creatinine Ratio 10.4 (12.0-20.0); CO2, Blood 28 mmol/L (21-32); Calcium, Blood 8.5 mg/dL (8.5-10.1); Chloride, Blood 109 mmol/L (98-108); Creatinine, Blood 0.87 mg/dL (0.60-1.20); Globulin, Blood 2.7 g/dL (2.2-4.0); Glomerular Filtration Rate >60 (60-); Glucose, Blood 95 mg/dL (70-99); Potassium, Blood 3.4 mmol/L (3.5-5.5); Sodium, Blood 143 mmol/L (136-145); Total Protein, Blood 5.6 g/dL (6.4-8.2)
--- NOTE | 2020-08-17 13:05 | NUR ---
PT AGREED TO THIS STUDENT ASSISTING IN CARE.
[2020-08-17 16:44] LABS: Influenza A, PCR Negative (NEGATIVE); Influenza B, PCR Negative (NEGATIVE); Resp Syncytial Virus, PCR Negative (NEGATIVE); SARS-Cov-2 (COVID-19) PCR, MMC Negative (NEGATIVE)
--- NOTE | 2020-08-17 17:16 | NUR ---
PT CONTINUES TO WORK WITH PT AND IMPROVE . PT A 1 -2 ASSIST. PT ABLE TO EXPRESS HIS NEEDS. AT BEDSIDE. CALL LIGHT WITHIN REACH.
--- NOTE | 2020-08-17 17:29 | NUR ---
08/17/[address] Cedillo, Tremayne ready for discharge back to [facility]. Completed snf checklist, to [place], Met with Tremayne and Luz Maria, agreeable to return back to [facility] today or tommorrow. [place] review, accpeted Tremayne back tomorrow morning. Waiting for [facility] authorization, should be available tomorrow morning. Covid test completed, negative 08/17/19, will be acceptable for discharge tommorrow per [place]. Contacted Dr Cedillo, no discharge today Contacted Dr Willis for tomorrow am discharge. Transport planned for approx 11 am .
--- NOTE | 2020-08-17 19:09 | NUR ---
Spiritual care note: Provided prayer and comfort to Tremayne who was often tearful. He complained that his doesn't want him to come home, although he also admits that she's never actually said or done anything to indicate this. He appears a bit confused and laibile. He loves his family. He cannot read/write. He alternated between tearfulness and happiness as we spoke. He appeared to enjoy conversation and comfort. He allowed me to pray for him and his mood appeared lifted by end of visit, I will remain available.
--- NOTE | 2020-08-17 19:27 | NUR ---
RESTING QUIETLY, NO NOTED S/S ACUTE DISTRESS. CALL LIGHT IN REACH
--- NOTE | 2020-08-18 07:16 | NUR ---
SHIFT SUMMARY THIS RN TOOK OVER CARE FROM PRIMARY RN AT APPROXIMATELY 0100. PT IS AN 85 Y/O MALE, ADMITTED FOR ELEVATED TROPONINS. NO C/O PAIN, NAUSEA OR SOB DURING THE NIGHT. VITAL SIGNS STABLE. NO ACUTE CHANGES NOTED SINCE TAKING OVER CARE. REPORT GIVEN TO ONCOMING DAY SHIFT RN.
--- NOTE | 2020-08-18 14:26 | NUR ---
PATIENT HAS BEEN PLEASANT AND COOPERATIVE WITH STAFF. DENIES PAIN AND DISCOMFORT. VITALS HAVE BEEN STABLE. PATIENT WAS EXPECTED TO DISCHARGE TO A SNF TODAY HOWEVER THAT HAS BEEN TEMPORARILY PLACED ON HOLD WE WAIT FOR INSURANCE AUTHORIZATION. PATIENT CONTINUES ON IV ABX WITHOUT S/SX OF AVERSE REACTIONS NOTED OR REPORTED. PATIENT RESTING IN ROOM AT THIS TIME WITH VISITOR AT BEDSIDE. CALL LIGHT REMAINS WITHIN REACH.
--- NOTE | 2020-08-18 18:55 | NUR ---
08/18/[address] [facility] [address] for snf and out patient vestibular physical therapy. [facility] is reviewing Tremayne to return. Concerns with vestibular therapy needed and no personal to provide at [facility] facilitys. Also needs iv antibiotics BID Doxy for 4 days. Discussed with PJ WILSON assisting me with this snf discharge. Expecting to have answer Saturday from [facility]. Can look outside area for snf with vestibular therapy if denied by [facility]. cp
--- NOTE | 2020-08-18 19:17 | NUR ---
RESTING QUIETLY IN BED. NO NOTED ACUTE DISTRESS. CALL LIGHT IN REACH
--- NOTE | 2020-08-19 03:11 | NUR ---
SHIFT SUMMARY HAS BEEN RESTING QUIETLY WITH NO NOTED DISTRESS THIS SHIFT. HOB ELEVATED. CALL LIGHT IN REACH
[2020-08-19 05:44] LABS: BASOPHILS ABSOLUTE AUTO 0.04 K/mm3 (0.00-0.23); BASOPHILS PERCENT AUTO 1 % (0-2); EOSINOPHILS ABSOLUTE AUTO 0.26 K/mm3 (0.00-0.68); EOSINOPHILS PERCENT AUTO 5 % (0-6); Hematocrit 36.7 % (37.0-53.0); Hemoglobin 11.2 g/dL (13.5-17.5); IMMATURE GRAN ABSOLUTE AUTO 0.01 K/mm3 (0.00-0.10); IMMATURE GRAN PERCENT AUTO 0 % (0-1); LYMPHOCYTES ABSOLUTE AUTO 1.05 K/mm3 (0.84-5.20); LYMPHOCYTES PERCENT AUTO 21 % (21-46); MONOCYTES ABSOLUTE AUTO 0.52 K/mm3 (0.16-1.47); MONOCYTES PERCENT AUTO 10 % (4-13); Mean Corpuscular HGB 28.8 pg (26.0-34.0); Mean Corpuscular HGB Conc 30.5 g/dL (31.5-36.5); Mean Corpuscular Volume 94 fL (80-100); Mean Platelet Volume 10.9 fL (9.1-12.4); NEUTROPHILS ABSOLUTE AUTO 3.18 K/mm3 (1.96-9.15); NEUTROPHILS PERCENT AUTO 63 % (41-73); Platelet Count 146 K/mm3 (150-400); RDW Coefficient Variation 16.4 % (11.7-14.2); Red Blood Cell Count 3.89 M/mm3 (4.30-5.90); White Blood Cell Count 5.06 K/mm3 (4.00-11.30)
[2020-08-19 06:09] LABS: Anion Gap 7 mmol/L (6-16); Blood Urea Nitrogen 7 mg/dL (8-24); Bun/Creatinine Ratio 9.2 (12.0-20.0); CO2, Blood 28 mmol/L (21-32); Calcium, Blood 8.9 mg/dL (8.5-10.1); Chloride, Blood 105 mmol/L (98-108); Creatinine, Blood 0.76 mg/dL (0.60-1.20); Glomerular Filtration Rate >60 (60-); Glucose, Blood 104 mg/dL (70-99); Potassium, Blood 3.9 mmol/L (3.5-5.5); Sodium, Blood 140 mmol/L (136-145)
[2020-08-19] MEDS ORDERED: CITA20 PO (09:13)
[2020-08-19] MEDS ORDERED: QUET25 PO (09:14)
[2020-08-19] MEDS ORDERED: DOXY100 PO ×2 (09:15)
[2020-08-19] MEDS ORDERED: VISBIOME 112.51 EACH PO (11:20)
[2020-08-19] MEDS ORDERED: MACRODANTIN50 M1 PO (11:21)
[2020-08-19] MEDS ORDERED: TUMS500 MG PO (12:38)
[2020-08-19] MEDS ORDERED: VIBRAMYCIN IV (12:49)
--- NOTE | 2020-08-19 13:26 | NUR ---
PT DISCHARGED PT TRANSFERED TO [facility], ACCOMPANIED BY [facility], REPOT WAS GIVEN BY PHONE TO PATRICK TAYLOR AT THE REHAB CENTER, THE PT APPEARED TO BE BREATHING EASILY ON RA AT THE TIME OF DC, A POWER GLIDE WAS INSERTED JUST PRIOR TO DC FOR IV ABX, PT WAS A/O AT THE TIME OF DC
--- NOTE | 2020-08-20 15:37 | NUR ---
ADMIT: 08/15/20 DISCHARGE: 08/19/20 DX: elevated trop CC: [email or web address] ADMIT:07/25/20 DISCHARGE: 08/05/20 DX: hypotension CC: [email or web address], [email or web address] ADMIT: 06/16/20 DISCHARGE: 06/21/20 DX: left hip fracture CC: [email or web address] ADMIT: 03/02/19 DISCHARGE: DX: 03/03/19 SYNCOPE AND COLLAPSE CC: ADMIT: 06/10/17 DISCHARGE: 06/14/17 [place] CALL: 08/19/20 discharged to [facility] for [facility]hab. Last discharge to [facility] 06/21/20 RESIDENCE: Home with Luz Maria Carodna Son lives [place] [facility] in the back yard, He is capable of watching over Tremayne if Denisa needs to leave the home CAREGIVER: Luz Maria Mccall, Spouse / Partner, DX: HARD OF HEARING HTN, PND, DANNIE, CORONARY ARTERIOSCLEROIS, GOUT, REFULX, MILD LEFT VENT SYS DYS. 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 SEE PROB LIST DME: BIPAP ASV- [facility], cpap prior to ASV, wheelchair, walker. CCM: None HOME HEALTH: [facility] - need new f 2 f, need vestibular therapy SUMMARY: admit 08/15/20 08/19/20 Discharge to [facility] for [facility]hab and 3 days iv antibiotic therapy. Rehab to include outpatient vestibulra therapy approved by [facility]. Call [facility] for transition of care and follow up appointment.
== END 2020-08-19 13:16 | DRG 698 ==
LOC: ER 04:34 → MEDS 04:35 → EDPENDDIS 08-19 11:06 → ENPENDDIS 08-19 11:06 → MEDS 08-19 13:16
PROVIDERS: Emergency Medicine; Family Medicine; Internal Medicine; ADMIT Family Medicine
DX: T83.511A Infection and inflammatory reaction due to indwelling urethral catheter, initial encounter (principal); S72.92XA Unspecified fracture of left femur, initial encounter for closed fracture; G92 Toxic encephalopathy; E87.2 Acidosis; I24.8 Other forms of acute ischemic heart disease; I48.20 Chronic atrial fibrillation, unspecified; N17.9 Acute kidney failure, unspecified; Z20.822 Contact with and (suspected) exposure to COVID-19; E78.5 Hyperlipidemia, unspecified; E03.9 Hypothyroidism, unspecified; F03.90 Unspecified dementia, unspecified severity, without behavioral disturbance, psychotic disturbance, mood disturbance, and anxiety; G47.33 Obstructive sleep apnea (adult) (pediatric); G60.9 Hereditary and idiopathic neuropathy, unspecified; I25.10 Atherosclerotic heart disease of native coronary artery without angina pectoris; I25.2 Old myocardial infarction; K21.9 Gastro-esophageal reflux disease without esophagitis; Z85.46 Personal history of malignant neoplasm of prostate; Z86.73 Personal history of transient ischemic attack (TIA), and cerebral infarction without residual deficits; Z87.891 Personal history of nicotine dependence; N39.0 Urinary tract infection, site not specified; W19.XXXA Unspecified fall, initial encounter; Z91.81 History of falling; I11.0 Hypertensive heart disease with heart failure; I50.9 Heart failure, unspecified; Z98.62 Peripheral vascular angioplasty status
CPT/HCPCS: 0241U; 36415; 51702; 71045; 80048; 80053; 81001; 82550; 83605; 83690; 84484; 85025; 87040; 93005; 93010; 96361; 96365; 96367; 96372; 96372-59; 96375; 96376; 97110; 97116; 97161; 97165; 97530; 97535; 99285-25; A9270; C1751; G0378; J0696; J1650; J7030

== ENCOUNTER 2020-09-05 18:06 | Emergency (ER) | payer OTHER ==
[~2020-09-05] VITALS: Ht 182.9 cm; Wt 86.2 kg
[~2020-09-05 18:06] MED LIST changes: +CITA20 PO; +DOXY100 PO; +MACRODANTIN50 M1 PO; +NITR100CA PO; +QUET25 PO; +TUMS500 MG PO; +VIBRAMYCIN IV; +VISBIOME 112.51 EACH PO
== END 2020-09-05 19:51 | disposition home or self-care (01) ==
LOC: ER 18:06
DX: S06.9X9A Unspecified intracranial injury with loss of consciousness of unspecified duration, initial encounter (principal); I25.2 Old myocardial infarction; I25.10 Atherosclerotic heart disease of native coronary artery without angina pectoris; E78.00 Pure hypercholesterolemia, unspecified; Z79.82 Long term (current) use of aspirin; Z79.899 Other long term (current) drug therapy; Z88.0 Allergy status to penicillin; Z91.09 Other allergy status, other than to drugs and biological substances; Z95.5 Presence of coronary angioplasty implant and graft; Z87.891 Personal history of nicotine dependence; W01.10XA Fall on same level from slipping, tripping and stumbling with subsequent striking against unspecified object, initial encounter
CPT/HCPCS: 70450; 71046; 72125; 99284-25

== ENCOUNTER → 2020-10-17 | Outpatient (CLI) | payer OTHER ==
[2020-10-17 19:26] LABS: Prostate Specific Antigen 0.046 ng/mL (0.000-4.000)
== END | disposition home or self-care (01) ==
LOC: LAB SHORT 16:00 → LAB 16:00
PROVIDERS: Internal Medicine
DX: E61.0 Copper deficiency (principal)
CPT/HCPCS: 84153